=== PATIENT | male | born 1965 | race American Indian/Alaskan Native ===

== ENCOUNTER 2018-04-24 13:10 | Inpatient (IN) | payer OTHER ==
--- NOTE | 2018-04-24 13:37 | ED PDOC ---
Arrival/HPI - General Chief Complaint: Weakness/Neurological Deficit Time Seen by Provider: 04/24/18 13:32 Historian: Patient - History of Present Illness Narrative History of Present Illness (Text): 04/24/18 13:40 52 year old male, who presents to the emergency department complaining of persistent dizziness associated with feeling faint, with no LOC. Patient reports he began to feel like this ~ 2 days ago s/p eating some left overs in the fridge from fathers day (store brought food). Patient denies diarrhea, but states his symptoms are associated with a few episodes of nausea, 1 episode of vomiting, and mild frontal forehead discomfort. He notes the ceiling appeared as if it were moving when the dizziness was severe. Patient denies hearing changes, speech changes, vision changes, fever, diaphoresis, chills, chest pain , shortness of breath, palpitations, abdominal pain, or urinary and bowel changes. pt denied numbness/tingling; pt denied focal arm/leg weakness; No other complaints were made. pt denied fall/trauma/travel/sick contact. pt is here for further eval PCP: None Patient has not seen a physician for more than 5 years for personal choice. 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 Time/Duration: < week Symptom Onset: Sudden Symptom Course: Unchanged Activities at Onset: Rest Context: Home Past Medical History - Provider Review Nursing Documentation Reviewed: Yes - Travel History Have you recently traveled outside [place] w/in the past 3 mons?: No - Past History Past History: No Previous - Infectious Disease Hx of Infectious Diseases: None - Cardiac Hx Cardiac Disorders: No - Pulmonary Hx Respiratory Disorders: No - Neurological Hx Neurological Disorder: No - HEENT Hx HEENT Disorder: No - Renal Hx Renal Disorder: No - Psychiatric Hx Substance Use: No - Anesthesia Hx Anesthesia: No Family/Social History - Physician Review Nursing Documentation Reviewed: Yes Family/Social History: Unknown Family HX Smoking Status: Current Some Days Smoker Hx Alcohol Use: Yes Frequency of alcohol use: Socially Hx Substance Use: No Hx Substance Use Treatment: No Allergies/Home Meds Allergies/Adverse Reactions: Allergies No Known Allergies Allergy (Verified 04/24/18 13:28) Home Medications: Home Meds Medication Instructions Recorded Confirmed No Known Home Med 04/24/18 04/24/18 Review of Systems - Review of Systems Constitutional: Fatigue. absent: Fevers Eyes: absent: Vision Changes ENT: Normal. absent: Hearing Changes, Sore Throat, Rhinorrhea Respiratory: absent: SOB Cardiovascular: absent: Chest Pain Gastrointestinal: Nausea, Vomiting, Appetite Changes. absent: Abdominal Pain, Stool Changes, Diarrhea Genitourinary Male: absent: Dysuria Musculoskeletal: absent: Back Pain Skin: absent: Rash Neurological: Headache, Dizziness. absent: Focal Weakness, Speech Changes, Facial Droop Endocrine: Normal Hemo/Lymphatic: Normal Psychiatric: Normal Physical Exam - Physical Exam Narrative Physical Exam (Text): 04/24/18 General: alert/awake, GCS = 15, oriented x 3, resting in bed, uncomfortable, cooperative, interactive; NAD Head: NC/AT EYE: PERRLA, EOMI, sclera anicteric, + horizontal nystagmus, no photophobia; visual field intact b/l Facial: WNL Oral: uvula/tongue are midline, no exudate/lesions, no drooling/stridor, no dysphonia; fair dentitions; moist oral mucosa NECK: intact ROM, no midline tenderness, no nuchal rigidity, no meningeal signs ; no step off Chest: CTA b/l, no w/r/r; no tachypenia, no accessory muscle use noted Chest Wall: no crepitus, no lesions, no gross deformities, no focal tenderness Cardiac: +S1, +S2, no m/r/r, no tachycardia Abdominal: +BS, soft/nd/nt, well nourished patient; no masses/rebound/guarding/ rigidity; no moura's sign, no mcburney's point tenderness Extremities: intact ROM, strength 5/5 grossly intact in all limbs, neurovasc intact b/l; reflex +2/2; no pitting edema/swelling noted to b/l lower ext; no marina's sign b/l; pt unable to stand without assistance with right sided lean BACK: no step off, no midline tenderness, NO crepitus, no gross deformities noted; Intact ROM SKIN: cap refill < 1 sec, no ulcerations, no petechiae, no rashes; no gross pallor noted NEURO: CNII-XII WNL, no facial asymmetries, no slurr speech, oriented x 3; F- Nose is off; pt with right sided lean NIH stroke scale ~ 1-2 Psych: normal insight, normal affect; follows command with ease Vital Signs Reviewed: Yes Vital Signs Temp Pulse Resp BP Pulse Ox 04/24/18 17:45 82 16 151/87 H 97 04/24/18 13:29 98.4 F 86 17 146/101 H 95 04/24/18 13:21 98.2 F 87 18 146/101 H 98 Temperature: Afebrile Blood Pressure: Hypertensive Pulse: Regular Respiratory Rate: Normal Appearance: Positive for: Well-Appearing, Non-Toxic, Uncomfortable. No: Comfortable, Ill-Appearing, Unkept Pain Distress: None Mental Status: Positive for: Alert and Oriented X 3 - Systems Exam Head: Present: Atraumatic, Normocephalic Medical Decision Making ED Course and Treatment: 04/24/18 13:42 Impression: dizziness/weakness, unsteady gait; frontal headaches i have consider all the differential diagnosis regarding pt's chief medical complaints/clinical findings, including but are not limited to: dizziness/ weakness, unsteady gait; frontal headaches; r/o peripheral disease vs central A/P: dizziness/weakness, unsteady gait; frontal headaches -- EKG -- CT head -- Chest X-ray -- Antivert, Reglan, Toradol, and Sodium Chloride -- Urinalysis 300pm pt with continued dizziness pt states no improvement of his symptoms pt is awaiting CT results 330pm with abnl CT results, will suggests consulting neurology community organization director and pt will likely be admitted to the hospital for further mgt/txt/dx 04/24/18 16:11 Discussed case with , who is made aware and would like to place patient in ICU for continued observation. Requested ICU consultation for concern of cerebellar edema, and/or worsening neurologic symptoms/pathology; close monitoring is reqested; Dr Asher is ok with aspirin full dose and Plavix 75mg, and would like CTA order for the patient as well; Dr Asher will evaluate patient at bedside pt/family are made aware of pt's medical results agrees with admission 04/24/18 16:16 Discussed case with , ICU attending community organization director, who is made aware and will evaluate patient. Will most likely accept patient to ICU. 04/24/18 16:55 Discussed with (hospitalist), who was made aware and agrees with patient admission. 515pm Dr Horan at bedside, evaluated patient, will accept patient to the ICU for further mgt/txt/evaluation Re-evaluation Time: 15:18 Reassessment Condition: Unchanged - Critical Care Critical Care Minutes: 45 minutes Critical Care Time: Excluding Proc Time Narrative Critical Care (Text): 04/24/18 18:07 critical care time: 45min, excluding procedure time, excluding time teaching residents/students/mid-level providers; including initial eval/diagnosis, diagnostic interpretation, re-eval, consultations, final disposition - Lab Interpretations Lab Results: 04/24/18 14:30 04/24/18 14:30 Lab Results 04/24/18 14:30: TSH 3rd Generation 0.88 04/24/18 14:30: Sodium 145, Potassium 4.1, Chloride 105, Carbon Dioxide 27, Anion Gap 17, BUN 21, Creatinine 1.2, Est GFR ( Amer) > 60, Est GFR (Non- Af Amer) > 60, Random Glucose 129 H, Calcium 10.3, Total Bilirubin 0.6, AST 33, ALT 42, Alkaline Phosphatase 102, Troponin I < 0.01, Total Protein 8.4 H, Albumin 4.5, Globulin 3.9, Albumin/Globulin Ratio 1.2 04/24/18 14:30: WBC 8.7, RBC 4.94, Hgb 13.3 L, Hct 40.8 L, MCV 82.6, MCH 26.9, MCHC 32.6, RDW 14.9 H, Plt Count 289, MPV 9.1, Gran % 72.9 H, Lymph % (Auto) 21.5 L, C[place] % (Auto) 5.4, Eos % (Auto) 0.1 L, Baso % (Auto) 0.1, Gran # 6.34, Lymph # (Auto) 1.9, [place] # (Auto) 0.5, Eos # (Auto) 0.0, Baso # (Auto) 0.01 I have reviewed the lab results: Yes Interpretation: All labs normal - RAD Interpretation Narrative RAD Interpretations (Text): 04/24/18 14:25 Chest X-ray: Creator : Sharif Liu MD FINDINGS: LUNGS: No active pulmonary disease. PLEURA: No significant pleural effusion identified, no pneumothorax apparent. CARDIOVASCULAR: Mild cardiomegaly OSSEOUS STRUCTURES: No significant abnormalities. VISUALIZED UPPER ABDOMEN: Normal. OTHER FINDINGS: None. IMPRESSION: No active disease. 04/24/18 15:47 CT HEAD WITHOUT CONTRAST: PROCEDURE: HISTORY: dizziness, frontal headache x 2 days, no trauma FINDINGS: HEMORRHAGE: No intracranial hemorrhage. BRAIN: No mass effect or edema. There is an acute or subacute infarct in the inferior aspect of the right cerebellar hemisphere. This measures 3 x 4 cm as seen on image 5 series 2. The study was reviewed with Dr. Alva at 3:40 p.m. VENTRICLES: Unremarkable. No hydrocephalus. CALVARIUM: Unremarkable. PARANASAL SINUSES: Unremarkable as visualized. No significant inflammatory changes. MASTOID AIR CELLS: Unremarkable as visualized. No inflammatory changes. OTHER FINDINGS: None. IMPRESSION: Acute or subacute infarct in the right inferior cerebellar hemisphere in the distribution of the posterior inferior cerebellar artery. 04/24/18 18:11 CTA results pending PROCEDURE: CT Angiography of the Brain and Neck. HISTORY: per Dr Asher, would like CTA; pt with abnl ct head COMPARISON: None available. TECHNIQUE: CT angiography of the intracranial and neck arteries was performed. Coronal and sagittal maximum intensity projection reformatted images were generated. Contrast Dose: Omnipaque 350, 142 cc Radiation dose:Total exam DLP = 769.98 mGy-cm. This CT exam was performed using one or more of the following dose reduction techniques: Automated exposure control, adjustment of the mA and/or kV according to patient size, and/or use of iterative reconstruction technique. FINDINGS: INTERNAL CEREBRAL ARTERIES: Unremarkable. The skull base, petrous, cavernous and supraclinoid segments are bilaterally widely patent. ANTERIOR CEREBRAL ARTERIES: Unremarkable. A1 and A2 segments are widely patent. Smaller distal branches unremarkable, as visualized. MIDDLE CEREBRAL ARTERIES: Unremarkable. M1 and M2 segments are widely patent. Perisylvian branches grossly symmetric. POSTERIOR CIRCULATION: Basilar Artery: Unremarkable. Distal Vertebral Arteries: Unremarkable. Posterior Cerebral Arteries: Unremarkable. Posterior Inferior Cerebellar Arteries: Unremarkable. NECK CTA: Common Carotid arteries: The bilateral common carotid appear widely patent from their origins to their bifurcations with no significant stenosis appreciated. No evidence to suggest common carotid artery dissection. Internal Carotid arteries: No significant stenosis is appreciated throughout the cervical internal carotid artery segments bilaterally and there is no evidence of dissection either. External Carotid arteries: Appear unremarkable bilaterally. Vertebral arteries: The bilateral vertebral arteries appear normal in caliber from their origins to their junction with the basilar artery. No significant stenosis or definite pattern of dissection. ANEURYSM/ VASCULAR MALFORMATIONS: None. 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 IMPRESSION: Unremarkable CT Angiography of the Brain and Neck. 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 Radiology Orders: 04/24/18 13:43 HEAD W/O CONTRAST [CT] Stat CHEST PORTABLE [RAD] Stat 04/24/18 16:14 CTA HEAD/NECK CODE STROKE [CT] Stat [employer]: Radiologist - EKG Interpretation EKG Interpretation (Text): 04/24/18 15:06 NSR at 85 bpm, normal axis, no ectopy, non-specific t changes, ABNL EKG; no old ekg to compare with Interpreted by ED Physician: Yes Type: 12 lead EKG Comparison: No previous EKG avail. - Medication Orders Current Medication Orders: Aspirin (Aspirin Chewable) 81 mg PO DAILY PREETI Atorvastatin Calcium (Lipitor) 20 mg PO DIN PREETI Famotidine (Pepcid) 40 mg PO HS PREETI Last Admin: 04/24/18 22:11 Dose: 40 mg Heparin Sodium (Porcine) (Heparin) 5,000 units SC Q12 PREETI PRN Reason: Protocol Last Admin: 04/24/18 22:11 Dose: 5,000 units Subcutaneous Administrations Document 04/24/18 22:11 PRATT (Rec: 04/24/18 22:11 PRATT [id number]) Injection Site MAR Injection Site Right Abdomen Charges for Administration # of Subcutaneous Administrations 1 Folic Acid 1 mg/ Thiamine HCl 100 mg/ Multivitamins/Vitamin C 10 ml/ Dextrose 1 ,011.2 mls @ 50 mls/hr IV .[id number] PREETI Stop: 04/26/18 19:46 Last Admin: 04/24/18 20:00 Dose: 50 mls/hr eMAR Start Stop Document 04/24/18 20:00 PRATT (Rec: 04/24/18 22:10 PRATT [id number]) Intravenous Solution Start Date 04/24/18 Start Time 20:00 Insulin Human Regular (Humulin R Low) 0 units SC ACHS PREETI PRN Reason: Protocol Last Admin: 04/24/18 22:02 Dose: Not Given Non-Admin Reason: Blood Sugar Parameter Ondansetron HCl (Zofran Inj) 4 mg IVP Q8 PRN PRN Reason: Nausea/Vomiting Discontinued Medications Aspirin (Aspirin) 325 mg PO STAT STA Stop: 04/24/18 15:50 Last Admin: 04/24/18 15:54 Dose: 325 mg Clopidogrel Bisulfate (Plavix) 75 mg PO STAT STA Stop: 04/24/18 16:15 Last Admin: 04/24/18 16:34 Dose: 75 mg Sodium Chloride (Sodium Chloride 0.9%) 500 mls @ 999 mls/hr IV .Q31M STA Stop: 04/24/18 14:16 Last Admin: 04/24/18 14:26 Dose: 999 mls/hr eMAR Start Stop Document 04/24/18 14:26 SHER (Rec: 04/24/18 14:26 [id number]) Intravenous Solution Start Date 04/24/18 Start Time 14:26 End Date 04/24/18 End time 14:57 Total Infusion Time 31 Meclizine HCl (Antivert) 25 mg PO STAT STA Stop: 04/24/18 13:45 Last Admin: 04/24/18 14:25 Dose: 25 mg Metoclopramide HCl (Reglan) 10 mg IVP STAT STA Stop: 04/24/18 13:45 Last Admin: 04/24/18 14:25 Dose: 10 mg IVP Administration Document 04/24/18 14:25 SHER (Rec: 04/24/18 14:26 [id number]) Charges for Administration # of IVP Administrations 1 - Scribe Statement The provider has reviewed the documentation as recorded by the Juan Jose Bryan Provider Scribe Attestation: All medical record entries made by the Juan Jose were at my direction and personally dictated by me. I have reviewed the chart and agree that the record accurately reflects my personal performance of the history, physical exam, medical decision making, and the department course for this patient. I have also personally directed, reviewed, and agree with the discharge instructions and disposition. Disposition/Present on Arrival - Present on Arrival Any Indicators Present on Arrival: No History of DVT/PE: No History of Uncontrolled Diabetes: No Urinary Catheter: No History of Decub. Ulcer: No History Surgical Site Infection Following: None - Disposition Have Diagnosis and Disposition been Completed?: Yes Diagnosis: Dizziness, Cerebellar infarct, Ataxia, Elevated blood pressure reading Diagnosis: (Ruled Out): Elevated blood pressure reading in office with diagnosis of hypertension Disposition: HOSPITALIZED Disposition Time: 16:30 Patient Plan: Admission, ICU Patient Problems: Current Active Problems Problem Status Onset Dizziness Acute Condition: FAIR
[2018-04-24] MEDS ORDERED: Sodium Chloride 0.9% 500 ML IV STA (13:46)
--- NOTE | 2018-04-24 14:24 | RAD ---
HISTORY: dizziness COMPARISON: No prior. FINDINGS: LUNGS: No active pulmonary disease. PLEURA: No significant pleural effusion identified, no pneumothorax apparent. CARDIOVASCULAR: Mild cardiomegaly OSSEOUS STRUCTURES: No significant abnormalities. VISUALIZED UPPER ABDOMEN: Normal. OTHER FINDINGS: None. IMPRESSION: No active disease.
[2018-04-24 15:01] LABS: BASO # 0.01 K/mm3 (0.0-2.0); BASO % 0.1 % (0.0-3.0); EOS % 0.1 % (1.5-5.0); GRAN # 6.34 (1.4-6.5); GRAN % 72.9 % (50.0-68.0); HEMOGLOBIN 13.3 g/dL (14.0-18.0); LYMPH # 1.9 (1.2-3.4); LYMPH % 21.5 % (22.0-35.0); MEAN CELL VOLUME 82.6 fl (80.0-105.0); MEAN CORPUSCULAR HEMOGLOBIN 26.9 pg (25.0-35.0); MEAN CORPUSCULAR HGB CONC 32.6 g/dl (31.0-37.0); MEAN PLATELET VOLUME 9.1 fl (7.0-11.0); MONO # 0.5 (0.1-0.6); MONO % 5.4 % (1.0-6.0); RBC 4.94 10^6/uL (3.5-6.1); RED CELL DISTRIBUTION WIDTH 14.9 % (11.5-14.5); WHITE BLOOD COUNT 8.7 10^3/ul (4.5-11.0)
[2018-04-24 15:11] LABS: ALB/GLOB RATIO 1.2 (1.1-1.8); ALBUMIN 4.5 g/dL (3.0-4.8); ALT/SGPT 42 U/L (7-56); AST/SGOT 33 U/L (17-59); BLOOD UREA NITROGEN 21 mg/dL (7-21); CALCIUM 10.3 mg/dL (8.4-10.5); GFR AFRICAN-AMERICAN > 60; GFR NON-AFRICAN AMERICAN > 60
[2018-04-24 15:23] LABS: TROPONIN I < 0.01 ng/mL
--- NOTE | 2018-04-24 15:43 | CT ---
PROCEDURE: CT HEAD WITHOUT CONTRAST. HISTORY: dizziness, frontal headache x 2 days, no trauma COMPARISON: None available. TECHNIQUE: Axial computed tomography images were obtained through the head/brain without intravenous contrast. Radiation dose: Total exam DLP = 998 mGy-cm. This CT exam was performed using one or more of the following dose reduction techniques: Automated exposure control, adjustment of the mA and/or kV according to patient size, and/or use of iterative reconstruction technique. FINDINGS: HEMORRHAGE: No intracranial hemorrhage. BRAIN: No mass effect or edema. There is an acute or subacute infarct in the inferior aspect of the right cerebellar hemisphere. This measures 3 x 4 cm as seen on image 5 series 2. The study was reviewed with Dr. Alva at 3:40 p.m. VENTRICLES: Unremarkable. No hydrocephalus. CALVARIUM: Unremarkable. PARANASAL SINUSES: Unremarkable as visualized. No significant inflammatory changes. MASTOID AIR CELLS: Unremarkable as visualized. No inflammatory changes. OTHER FINDINGS: None. IMPRESSION: Acute or subacute infarct in the right inferior cerebellar hemisphere in the distribution of the posterior inferior cerebellar artery.
--- NOTE | 2018-04-24 17:12 | CP.PCM.CON ---
Addendum entered and electronically signed by Debo Rivera DO 04/24/18 19:25 : Per Dr. Asher, permissive hypertension is 180/90 and no preference of choice of antihypertensive agents. Original Note: <Debo Rivera - Last Filed: 04/24/18 18:03> History of Present Illness - History of Present Illness History of Present Illness: PGY-[address] Horan CC: Stroke at R inferior cerebella hemisphere Mr Vleázquez, 54 AAM, active smoker, chronic ETOH use, comes in for dizziness and swerving to R side x 2 days since Sunday. On Sunday, after pt ate some left over food, he felt lightheadedness, always looking to the R side, nausea, vomit x 1 (digested food, non-bloody, non-bilous). He noticed that when he walked, he swerved to R side, and he tripped often. Denies fall. As for dizziness, he said that it is due to swerving to R side that made him feel lightheadedness, denied room spinning. Pt decided to come to hospital today, day 2 of dizziness & swerving, because Sx did not improves. Pt had a cold/flu 2 weeks ago, but go to work as usual. 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 ROS: (+) N/V, (+) decrease appetite Denies PRATT, CP, SOB, Abd pain, dysuria, decrease urine output, falls PMH None PSH None FH Cancer - unknown which kind Denies FH of sickle cell, thelasemia, factor V leiden or other hypercoagulable disease, no bleeding disease in Family\ (+) 3/4 pack of cigar x 5 years (+) 2-3 (12oz) beer per night; <1 shot hard liquor every other night Denies drig SH Live with Son and daughter. No . Pt is single All Denies Meds None PCP - No, havent seen doctor x >5 years Family contact #1: Son Los [phone] #2: Diana [phone] Past Patient History - Infectious Disease Hx of Infectious Diseases: None - Past Social History Smoking Status: Current Some Days Smoker - CARDIAC Hx Cardiac Disorders: No - PULMONARY Hx Respiratory Disorders: No - NEUROLOGICAL Hx Neurological Disorder: No - HEENT Hx HEENT Problems: No - RENAL Hx Chronic Kidney Disease: No - PSYCHIATRIC Hx Substance Use: No - ANESTHESIA Hx Anesthesia: No Meds Allergies/Adverse Reactions: Allergies Allergy/AdvReac Type Severity Reaction Status Date / Time No Known Allergies Allergy Verified 04/24/18 13:28 Physical Exam - Constitutional Appears: No Acute Distress - Head Exam Head Exam: ATRAUMATIC, NORMAL INSPECTION, NORMOCEPHALIC - Eye Exam Eye Exam: EOMI, Nystagmus (horizontal) Additional comments: Slight exothalmos with R eye strabismus (turning out) - ENT Exam ENT Exam: Mucous Membranes Moist - Neck Exam Additional comments: supple - Respiratory Exam Respiratory Exam: Clear to Auscultation Bilateral, NORMAL BREATHING PATTERN ( course breath sound RUL). absent: Rales, Rhonchi, Wheezes - Cardiovascular Exam Cardiovascular Exam: REGULAR RHYTHM, +S1, +S2 - GI/Abdominal Exam GI & Abdominal Exam: Normal Bowel Sounds, Soft. 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 [id number] = overshoots b/l rapid-alternating movement = intact (+) Horizontal nystagmus for vertical or horizontal gaze Motor: RUE 4/5, LUE 5/5; RLE 4/5; LLE 4+/5 sensory intact all 4 ext - Psychiatric Exam Psychiatric exam: Normal Affect, Normal Mood - Skin Skin Exam: Dry, Warm Results - Vital Signs Recent Vital Signs: Last Vital Signs Temp 98.4 F 04/24/18 13:29 Pulse 86 04/24/18 13:29 Resp 17 04/24/18 13:29 BP 146/101 H 04/24/18 13:29 Pulse Ox 95 04/24/18 13:29 - Labs Result Diagrams: 04/24/18 14:30 04/24/18 14:30 Labs: Laboratory Results - last 24 hr 04/24/18 04/24/18 04/24/18 14:30 14:30 14:30 WBC 8.7 RBC 4.94 Hgb 13.3 L Hct 40.8 L MCV 82.6 MCH 26.9 MCHC 32.6 RDW 14.9 H Plt Count 289 MPV 9.1 Gran % 72.9 H Lymph % (Auto) 21.5 L Blaine % (Auto) 5.4 Eos % (Auto) 0.1 L Baso % (Auto) 0.1 Gran # 6.34 Lymph # (Auto) 1.9 Blaine # (Auto) 0.5 Eos # (Auto) 0.0 Baso # (Auto) 0.01 Sodium 145 Potassium 4.1 Chloride 105 Carbon Dioxide 27 Anion Gap 17 BUN 21 Creatinine 1.2 Est GFR ( Amer) > 60 Est GFR (Non-Af Amer) > 60 Random Glucose 129 H Calcium 10.3 Total Bilirubin 0.6 AST 33 ALT 42 Alkaline Phosphatase 102 Troponin I < 0.01 Total Protein 8.4 H Albumin 4.5 Globulin 3.9 Albumin/Globulin Ratio 1.2 TSH 3rd Generation 0.88 Assessment & Plan - Assessment and Plan (Free Text) Plan: Mr Velázquez, 54 AAM, active smoker, chronic ETOH use, comes in for dizziness and swerving to R side x 2 days since Sunday. 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 CT head showed acute or subacute infarct in R inferior cerebellar hemisphere in the distribution of posterior inferior cerebella artery. A: Wallenberg Syndromes (Ataxia/swerving, nystagmus, lightheadedness/vertigo) Ischemic stroke R inferior cerebellar hemisphere in the distribution of posterior inferior cerebella artery, acute vs subacute R/O cardiogenic vs neurologic vs hematologic causes Neuro Neuro check q1 ASA 81 Lipitor 20 PT/OT/ST Pulm Maintain SaO2 above 95% Aspiration precaution Cardio Permissive hypertension up to 220/110 x 1 day GI NPO except meds, pending swallow/speech eval Zofran PRN Strict i/o Replete electrolytes PRN Endo Normal TSH Pending A1c Heme Defer to neuro for hypercoagulable workup ID No active issue Prophylaxis Heparin SC q8, pepcid HS s/r/d/w Dr Horan <Clement Horan - Last Filed: 04/24/18 18:13> Meds - Medications Medications: Current Medications Aspirin (Aspirin Chewable) 81 mg PO DAILY PREETI Atorvastatin Calcium (Lipitor) 20 mg PO DIN PREETI Famotidine (Pepcid) 40 mg PO HS PREETI Heparin Sodium (Porcine) (Heparin) 5,000 units SC Q12 RPEETI PRN Reason: Protocol Ondansetron HCl (Zofran Inj) 4 mg IVP Q8 PRN PRN Reason: Nausea/Vomiting Results - Vital Signs Recent Vital Signs: Last Vital Signs Temp 98.4 F 04/24/18 13:29 Pulse 82 04/24/18 17:45 Resp 16 04/24/18 17:45 BP 151/87 H 04/24/18 17:45 Pulse Ox 97 04/24/18 17:45 - Labs Result Diagrams: 04/24/18 14:30 04/24/18 14:30 Attending/Attestation - Attestation I have personally seen and examined this patient.: Yes I have fully participated in the care of the patient.: Yes I have reviewed all pertinent clinical information: Yes Notes (Text): 04/24/18 18:10 The patient was seen and examined at the bedside. Patient care was discussed with resident Medical records, lab studies were reviewed and management issues were discussed and formulated. Agree with above treatment plans as outlined in 's note with addition of the following: CVA \ -hemodynamic monitoring to maintain MAP>65 -f\u Echo and carotid US -o2 supplementation to maintain Spo2>90 Pao2>60; currently comfortable on NC -CT head shows right inferior cerebellar infarct -neurology team eval; pt not a TPA candidate as he is out of the TPA window -f\u Bun\Cr and U\o -NPO diet and aspiration precautions; dysphagia eval -ISS and BGM monitoring to maintain euglycemia -continue neuro checks as per Stroke protocol -PT\OT eval -DVT\PUD prophylaxis CCM time 30min
--- NOTE | 2018-04-24 17:53 | CARD ---
APPROVED REPORT EKG Measurement Heart [id number] MA [id number] [id number] <Conclusion> Normal sinus rhythm Nonspecific T wave abnormality Abnormal ECG
--- NOTE | 2018-04-24 18:40 | CP.PCM.HP ---
<Artur Amador - Last Filed: 04/24/18 18:28> History of Present Illness - History of Present Illness History of Present Illness: 52 year old male with no PMH presents to the hospital for 2 day history of dizziness and abnormal gait. Patient states there was no inciting event, but had a sudden change in his gait. Patient keeps walking towards the right side and feels unbalanced. Patient also admits to feeling dizzy during this time. He describes it as a lightheaded feeling, which lead to an episode of nausea and vomiting. Patient denies any trauma. Patient also admits to occasional trouble swallowing. Patient has never experienced anything like this before. Denies chest pain, shortness of breath, diarrhea, fever, chills, changes in vision, numbness, tingling, weakness, headache. PMH: None Surgical hx: None Family Hx: Noncontributory Social Hx: Occasional black and mild use x 5 years. Alcohol use every other day. No illicit drug use. Allergies: NKDA Medications: None Present on Admission - Present on Admission Any Indicators Present on Admission: No Review of Systems - Review of Systems Review of Systems: 12 point ROS as per HPI, otherwise negative Past Patient History - Infectious Disease Hx of Infectious Diseases: None - Past Social History Smoking Status: Current Some Days Smoker - CARDIAC Hx Cardiac Disorders: No - PULMONARY Hx Respiratory Disorders: No - NEUROLOGICAL Hx Neurological Disorder: No - HEENT Hx HEENT Problems: No - RENAL Hx Chronic Kidney Disease: No - PSYCHIATRIC Hx Substance Use: No - ANESTHESIA Hx Anesthesia: No Meds Allergies/Adverse Reactions: Allergies Allergy/AdvReac Type Severity Reaction Status Date / Time No Known Allergies Allergy Verified 04/24/18 13:28 Physical Exam - Constitutional Appears: Non-toxic, In Acute Distress - Head Exam Head Exam: ATRAUMATIC, NORMAL INSPECTION, NORMOCEPHALIC - Eye Exam Eye Exam: EOMI, Normal appearance, PERRL - ENT Exam ENT Exam: Mucous Membranes Moist, Normal Exam - Neck Exam Neck exam: Positive for: Normal Inspection - Respiratory Exam Respiratory Exam: Clear to Auscultation Bilateral, NORMAL BREATHING PATTERN - Cardiovascular Exam Cardiovascular Exam: RRR, +S2, +S4 - GI/Abdominal Exam GI & Abdominal Exam: Normal Bowel Sounds, Soft. absent: Tenderness - Extremities Exam Extremities exam: Positive for: normal inspection. Negative for: calf tenderness, pedal edema - Neurological Exam Neurological exam: Alert, CN II-XII Intact, Oriented x3 Additional comments: Muscle strength 5/5 in all extremities Gait exam deferred due to instability - Psychiatric Exam Psychiatric exam: Normal Affect, Normal Mood - Skin Skin Exam: Intact, Normal Color, Warm Results - Vital Signs Recent Vital Signs: Last Vital Signs Temp 98.4 F 04/24/18 13:29 Pulse 82 04/24/18 18:10 Resp 16 04/24/18 18:10 BP 153/93 H 04/24/18 18:10 Pulse Ox 97 04/24/18 18:10 - Labs Result Diagrams: 04/24/18 14:30 04/24/18 14:30 Assessment & Plan - Assessment and Plan (Free Text) Plan: 52 year old male with history of tobacco and alcohol use presents with right sided ischemic stroke. Head CT in ED displayed acute/subacute inferior right cerebellar hemisphere infarct. Patient admitted to the ICU for closer monitoring. 1. Right sided ischemic stroke Neurochecks q1h Physical therapy Occupational therapy Speech and swallow eval Head and Neck CTA ordered Echocardiogram ordered Carotid ultrasound Lipid panel ordered HgA1c ordered Neuro consulted, Recommend ASA and plavix 2. Prophylaxis Pepcid Heparin Perry, PGY-2 <Arti Castrejon - Last Filed: 04/24/18 19:10> Results - Vital Signs Recent Vital Signs: Last Vital Signs Temp 98.4 F 04/24/18 13:29 Pulse 73 04/24/18 19:03 Resp 34 H 04/24/18 19:03 BP 153/93 H 04/24/18 18:10 Pulse Ox 89 L 04/24/18 19:03 - Labs Result Diagrams: 04/24/18 14:30 04/24/18 14:30 Labs: Laboratory Results - last 24 hr 04/24/18 18:18 BBK History Checked No verified bt Attending/Attestation - Attestation I have personally seen and examined this patient.: Yes I have fully participated in the care of the patient.: Yes I have reviewed all pertinent clinical information: Yes Notes (Text): 04/24/18 19:06 52 year old male with history of tobacco and alcohol use presents with complaint of lower extremities weakness, gait imbalance and dizziness. CT head showed acute or subacute inferior right cerebellar hemisphere infarct. CTA head/neck and echocardiogram are ordered. Neurology evaluation is requested. Patient received aspirin and plavis. Lipid panel is ordered. PT evaluation is also requested. Patient was counselled on alcohol and smoking cessation. Family is at bedside and questions were answered. Arti Castrejon MD Hospitalist.
--- NOTE | 2018-04-24 18:53 | CT ---
PROCEDURE: CT Angiography of the Brain and Neck. HISTORY: per Dr Asher, would like CTA; pt with abnl ct head COMPARISON: None available. TECHNIQUE: CT angiography of the intracranial and neck arteries was performed. Coronal and sagittal maximum intensity projection reformatted images were generated. Contrast Dose: Omnipaque 350, 142 cc Radiation dose:Total exam DLP = 769.98 mGy-cm. This CT exam was performed using one or more of the following dose reduction techniques: Automated exposure control, adjustment of the mA and/or kV according to patient size, and/or use of iterative reconstruction technique. FINDINGS: INTERNAL CEREBRAL ARTERIES: Unremarkable. The skull base, petrous, cavernous and supraclinoid segments are bilaterally widely patent. ANTERIOR CEREBRAL ARTERIES: Unremarkable. A1 and A2 segments are widely patent. Smaller distal branches unremarkable, as visualized. MIDDLE CEREBRAL ARTERIES: Unremarkable. M1 and M2 segments are widely patent. Perisylvian branches grossly symmetric. POSTERIOR CIRCULATION: Basilar Artery: Unremarkable. Distal Vertebral Arteries: Unremarkable. Posterior Cerebral Arteries: Unremarkable. Posterior Inferior Cerebellar Arteries: Unremarkable. NECK CTA: Common Carotid arteries: The bilateral common carotid appear widely patent from their origins to their bifurcations with no significant stenosis appreciated. No evidence to suggest common carotid artery dissection. Internal Carotid arteries: No significant stenosis is appreciated throughout the cervical internal carotid artery segments bilaterally and there is no evidence of dissection either. External Carotid arteries: Appear unremarkable bilaterally. Vertebral arteries: The bilateral vertebral arteries appear normal in caliber from their origins to their junction with the basilar artery. No significant stenosis or definite pattern of dissection. ANEURYSM/ VASCULAR MALFORMATIONS: None. 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 IMPRESSION: Unremarkable CT Angiography of the Brain and Neck. 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
[2018-04-24] MEDS ORDERED: Folic Acid 1 MG, Thiamine 100 MG, Multivitamin (MVI) 10 ML in Dextrose 5% In Water 1,00... IV SCH (19:45)
[2018-04-24 22:00] VITALS: BMI 33.0
[2018-04-24] MEDS: Insulin Reg-LOW-Coverage SC SCH (22:02)
[2018-04-25 07:07] LABS: BASO # 0.02 K/mm3 (0.0-2.0); BASO % 0.3 % (0.0-3.0); EOS % 0.5 % (1.5-5.0); GRAN % 60.6 % (50.0-68.0); HEMOGLOBIN 12.8 g/dL (14.0-18.0); LYMPH # 2.1 (1.2-3.4); LYMPH % 31.6 % (22.0-35.0); MEAN CELL VOLUME 84.1 fl (80.0-105.0); MEAN CORPUSCULAR HEMOGLOBIN 26.4 pg (25.0-35.0); MEAN CORPUSCULAR HGB CONC 31.4 g/dl (31.0-37.0); MEAN PLATELET VOLUME 8.9 fl (7.0-11.0); MONO # 0.5 (0.1-0.6); RBC 4.84 10^6/uL (3.5-6.1); WHITE BLOOD COUNT 6.6 10^3/ul (4.5-11.0)
[2018-04-25 07:19] LABS: ALB/GLOB RATIO 1.2 (1.1-1.8); ALBUMIN 4.3 g/dL (3.0-4.8); ALT/SGPT 46 U/L (7-56); AST/SGOT 40 U/L (17-59); BLOOD UREA NITROGEN 17 mg/dL (7-21); CALCIUM 9.8 mg/dL (8.4-10.5); GFR AFRICAN-AMERICAN > 60; GFR NON-AFRICAN AMERICAN > 60; HDL CHOLESTEROL 44 mg/dL (29-60)
[2018-04-25 07:31] LABS: LDL CHOLESTEROL 122 mg/dL (0-129)
--- NOTE | 2018-04-25 07:35 | CP.CCUPN ---
<Debo Rivera - Last Filed: 04/25/18 11:21> CCU Subjective - Physician Review Subjective (Free Text): 04/25/18 07:31 Daughter by bedside. Per pt, he stood up for a brief while, tolerating. Complaint of PRATT, no dizziness/blurry vision/diplopia CCU Objective - Vital Signs / Intake & Output Intake and Output (Last 8hrs): Intake & Output 04/24/18 04/25/18 04/25/18 22:59 06:59 14:59 Weight 230 lb - Physical Exam Head: Positive for: Atraumatic, Normocephalic Pupils: Positive for: PERRL Extroacular Muscles: Positive for: EOMI Conjunctiva: Positive for: Normal Mouth: Positive for: Moist Mucous Membranes Neck: Positive for: Normal Range of Motion. Negative for: MIDLINE TENDERNESS, JVD Respiratory/Chest: Positive for: Clear to Auscultation, Good Air Exchange. Negative for: Accessory Muscle Use, Rales, Retracting, Rhonchi Cardiovascular: Positive for: Regular Rate and Rhythm, Normal S1, S2 Abdomen: Positive for: Normal Bowel Sounds. 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, [id number] = overshoots b/l, rapid-alternating movement = intact, (+) Horizontal nystagmus for vertical or horizontal gaze, Motor: RUE 5/5 , LUE 5/5; RLE 4+/5; LLE 5/5, sensory intact all 4 ext) Psychiatric: Positive for: Alert, Oriented x 3 - Medications Active Medications: Active Medications Generic Name Dose Route Start Last Admin Trade Name Emmanuelq PRN Reason Stop Dose Admin Aspirin 81 mg 04/25/18 10:00 Aspirin Chewable PO DAILY PREETI Atorvastatin Calcium 20 mg 04/25/18 17:00 Lipitor PO DIN PREETI Famotidine 40 mg 04/24/18 22:00 04/24/18 22:11 Pepcid PO 40 mg HS PREETI Administration Heparin Sodium (Porcine) 5,000 units 04/24/18 22:00 04/24/18 22:11 Heparin SC 5,000 units Q12 PREETI Administration Protocol Folic Acid 1 mg/ Thiamine HCl 1,011.2 mls @ 50 mls/hr 04/24/18 19:45 20:00 100 mg/ Multivitamins/Vitamin IV 04/26/18 19:46 50 mls/hr C 10 ml/ Dextrose .[id number] PREETI Administration Insulin Human Regular 0 units 04/24/18 22:00 04/24/18 22:02 Humulin R Low SC Not Given ACHS [facility] Protocol Ondansetron HCl 4 mg 04/24/18 17:53 Zofran Inj IVP Q8 PRN Nausea/Vomiting - Patient Studies Lab Studies: Lab Studies 04/25/18 04/25/18 04/24/18 Range/Units 06:25 06:25 21:58 WBC 6.6 D (4.5-11.0) 10^3/ul RBC 4.84 (3.5-6.1) 10^6/uL Hgb 12.8 L (14.0-18.0) g/dL Hct 40.7 L (42.0-52.0) % MCV 84.1 (80.0-105.0) fl MCH 26.4 (25.0-35.0) pg MCHC 31.4 (31.0-37.0) g/dl RDW 15.0 H (11.5-14.5) % Plt Count 262 (120.0-450.0) 10^3/uL MPV 8.9 (7.0-11.0) fl Gran % 60.6 (50.0-68.0) % Lymph % (Auto) 31.6 (22.0-35.0) % [place] % (Auto) 7.0 H (1.0-6.0) % Eos % (Auto) 0.5 L (1.5-5.0) % Baso % (Auto) 0.3 (0.0-3.0) % Gran # 4.00 (1.4-6.5) Lymph # (Auto) 2.1 (1.2-3.4) [place] # (Auto) 0.5 (0.1-0.6) Eos # (Auto) 0.0 (0.0-0.7) Baso # (Auto) 0.02 (0.0-2.0) K/mm3 Sodium 144 (132-148) mmol/L Potassium 4.1 (3.6-5.0) mmol/L Chloride 105 (98-107) mmol/L Carbon Dioxide 28 (21-33) mmol/L Anion Gap 16 (10-20) BUN 17 (7-21) mg/dL Creatinine 1.1 (0.8-1.5) mg/dl Est GFR ( Amer) > 60 Est GFR (Non-Af Amer) > 60 POC Glucose (mg/dL) 93 (65-110) mg/dL Random Glucose 103 (70-110) mg/dL Calcium 9.8 (8.4-10.5) mg/dL Total Bilirubin 0.6 (0.2-1.3) mg/dL AST 40 (17-59) U/L ALT 46 (7-56) U/L Alkaline Phosphatase 98 (38-126) U/L Total Protein 8.0 (5.8-8.3) g/dL Albumin 4.3 (3.0-4.8) g/dL Globulin 3.7 gm/dL Albumin/Globulin Ratio 1.2 (1.1-1.8) Triglycerides 160 (35-160) mg/dL Cholesterol 202 H (130-200) mg/dL HDL Cholesterol 44 (29-60) mg/dL Blood Type Antibody Screen BBK History Checked 04/24/18 Range/Units 18:18 WBC (4.5-11.0) 10^3/ul RBC (3.5-6.1) 10^6/uL Hgb (14.0-18.0) g/dL Hct (42.0-52.0) % MCV (80.0-105.0) fl MCH (25.0-35.0) pg MCHC (31.0-37.0) g/dl RDW (11.5-14.5) % Plt Count (120.0-450.0) 10^3/uL MPV (7.0-11.0) fl Gran % (50.0-68.0) % Lymph % (Auto) (22.0-35.0) % [place] % (Auto) (1.0-6.0) % Eos % (Auto) (1.5-5.0) % Baso % (Auto) (0.0-3.0) % Gran # (1.4-6.5) Lymph # (Auto) (1.2-3.4) [place] # (Auto) (0.1-0.6) Eos # (Auto) (0.0-0.7) Baso # (Auto) (0.0-2.0) K/mm3 Sodium (132-148) mmol/L Potassium (3.6-5.0) mmol/L Chloride (98-107) mmol/L Carbon Dioxide (21-33) mmol/L Anion Gap (10-20) BUN (7-21) mg/dL Creatinine (0.8-1.5) mg/dl Est GFR ( Amer) Est GFR (Non-Af Amer) POC Glucose (mg/dL) (65-110) mg/dL Random Glucose (70-110) mg/dL Calcium (8.4-10.5) mg/dL Total Bilirubin (0.2-1.3) mg/dL AST (17-59) U/L ALT (7-56) U/L Alkaline Phosphatase (38-126) U/L Total Protein (5.8-8.3) g/dL Albumin (3.0-4.8) g/dL Globulin gm/dL Albumin/Globulin Ratio (1.1-1.8) Triglycerides (35-160) mg/dL Cholesterol (130-200) mg/dL HDL Cholesterol (29-60) mg/dL Blood Type O POSITIVE Antibody Screen Negative BBK History Checked No verified bt Laboratory Results - last 24 hr 04/24/18 04/24/18 04/25/18 18:18 21:58 06:25 WBC 6.6 D RBC 4.84 Hgb 12.8 L Hct 40.7 L MCV 84.1 MCH 26.4 MCHC 31.4 RDW 15.0 H Plt Count 262 MPV 8.9 Gran % 60.6 Lymph % (Auto) 31.6 [place] % (Auto) 7.0 H Eos % (Auto) 0.5 L Baso % (Auto) 0.3 Gran # 4.00 Lymph # (Auto) 2.1 [place] # (Auto) 0.5 Eos # (Auto) 0.0 Baso # (Auto) 0.02 Sodium Potassium Chloride Carbon Dioxide Anion Gap BUN Creatinine Est GFR ( Amer) Est GFR (Non-Af Amer) POC Glucose (mg/dL) 93 Random Glucose Calcium Total Bilirubin AST ALT Alkaline Phosphatase Total Protein Albumin Globulin Albumin/Globulin Ratio Triglycerides Cholesterol HDL Cholesterol Blood Type O POSITIVE Antibody Screen Negative BBK History Checked No verified bt 04/25/18 06:25 WBC RBC Hgb Hct MCV MCH MCHC RDW Plt Count MPV Gran % Lymph % (Auto) [place] % (Auto) Eos % (Auto) Baso % (Auto) Gran # Lymph # (Auto) [place] # (Auto) Eos # (Auto) Baso # (Auto) Sodium 144 Potassium 4.1 Chloride 105 Carbon Dioxide 28 Anion Gap 16 BUN 17 Creatinine 1.1 Est GFR ( Amer) > 60 Est GFR (Non-Af Amer) > 60 POC Glucose (mg/dL) Random Glucose 103 Calcium 9.8 Total Bilirubin 0.6 AST 40 ALT 46 Alkaline Phosphatase 98 Total Protein 8.0 Albumin 4.3 Globulin 3.7 Albumin/Globulin Ratio 1.2 Triglycerides 160 Cholesterol 202 H HDL Cholesterol 44 Blood Type Antibody Screen BBK History Checked Critical Care Progress Note - Nutrition Nutrition: Nutrition Category Date Time Status NPO Diet [DIET] Diets 04/24/18 Dinner Ordered Assessment/Plan - Assessment and Plan (Free Text) Plan: Mr Velázquez, 54 AAM, active smoker, chronic ETOH use, comes in for dizziness and swerving to R side x 2 days since Sunday. 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 CT head showed acute or subacute infarct in R inferior cerebellar hemisphere in the distribution of posterior inferior cerebella artery. A: [place] Syndromes (Ataxia/swerving, nystagmus, lightheadedness/vertigo) Ischemic stroke R inferior cerebellar hemisphere in the distribution of posterior inferior cerebella artery, acute vs subacute R/O cardiogenic vs neurologic vs hematologic causes pt not a TPA candidate as he is out of the TPA window Neuro Neuro check q1 ASA 81 Lipitor 20 PT/OT/ST CIWA 0, stop banana bag, and give vitamins Echo and carotid US Pending neuro re: CTA head/MRA vs mRI Pulm Aspiration precaution o2 supplementation to maintain Spo2>90 Pao2>[address] Asher, permissive hypertension is 180/90 and no preference of choice of antihypertensive agents. No a-fib on monitor GI started soft HHD with nectar thick liquid, pending swallow/speech eval Passed RN swallow eval Zofran PRN Strict i/o Replete electrolytes PRN Endo Normal TSH Pending A1c Maintain blood glucose 140-180 Heme follow up on hypercoagulable workup ID No active issue Prophylaxis Heparin SC q8, pepcid HS' Dispo transfer to [facility], pending neuro s/r/d/w Dr. Horan <Clement Horan - Last Filed: 04/25/18 12:20> CCU Objective - Vital Signs / Intake & Output Intake and Output (Last 8hrs): Intake & Output 04/24/18 04/25/18 04/25/18 22:59 06:59 14:59 Intake Total 700 Output Total 500 Balance 200 Weight 230 lb 230 lb Intake: IV 600 Right Antecubital 600 Oral 100 Output: Urine 500 Urine, Voided 500 Stool 0 - Medications Active Medications: Active Medications Generic Name Dose Route Start Last Admin Trade Name Freq PRN Reason Stop Dose Admin Aspirin 81 mg 04/25/18 10:00 04/25/18 10:37 Aspirin Chewable PO 81 mg DAILY PREETI Administration Atorvastatin Calcium 40 mg 04/25/18 17:00 Lipitor PO DIN PREETI Famotidine 40 mg 04/24/18 22:00 04/24/18 22:11 Pepcid PO 40 mg HS PREETI Administration Folic Acid 1 mg 04/26/18 10:00 Folic Acid PO DAILY PREETI Heparin Sodium (Porcine) 5,000 units 04/24/18 22:00 04/25/18 10:37 Heparin SC 5,000 units Q12 PREETI Administration Protocol Insulin Human Regular 0 units 04/24/18 22:00 04/25/18 10:35 Humulin R Low SC Not Given ACHS [facility] Protocol Multivitamins 1 tab 04/26/18 10:00 Thera Tab PO DAILY PREETI Ondansetron HCl 4 mg 04/24/18 17:53 Zofran Inj IVP Q8 PRN Nausea/Vomiting Thiamine HCl 100 mg 04/26/18 10:00 Vitamin B1 Tab PO DAILY PREETI - Patient Studies Lab Studies: Lab Studies 04/25/18 04/25/18 04/25/18 Range/Units 11:44 07:42 06:25 WBC (4.5-11.0) 10^3/ul RBC (3.5-6.1) 10^6/uL Hgb (14.0-18.0) g/dL Hct (42.0-52.0) % MCV (80.0-105.0) fl MCH (25.0-35.0) pg MCHC (31.0-37.0) g/dl RDW (11.5-14.5) % Plt Count (120.0-450.0) 10^3/uL MPV (7.0-11.0) fl Gran % (50.0-68.0) % Lymph % (Auto) (22.0-35.0) % [place] % (Auto) (1.0-6.0) % Eos % (Auto) (1.5-5.0) % Baso % (Auto) (0.0-3.0) % Gran # (1.4-6.5) Lymph # (Auto) (1.2-3.4) [place] # (Auto) (0.1-0.6) Eos # (Auto) (0.0-0.7) Baso # (Auto) (0.0-2.0) K/mm3 Sodium (132-148) mmol/L Potassium (3.6-5.0) mmol/L Chloride (98-107) mmol/L Carbon Dioxide (21-33) mmol/L Anion Gap (10-20) BUN (7-21) mg/dL Creatinine (0.8-1.5) mg/dl Est GFR ( Amer) Est GFR (Non-Af Amer) POC Glucose (mg/dL) 96 97 (65-110) mg/dL Random Glucose (70-110) mg/dL Hemoglobin A1c (4.2-6.5) % Calcium (8.4-10.5) mg/dL Magnesium 2.4 H (1.7-2.2) mg/dL Total Bilirubin (0.2-1.3) mg/dL AST (17-59) U/L ALT (7-56) U/L Alkaline Phosphatase (38-126) U/L Total Protein (5.8-8.3) g/dL Albumin (3.0-4.8) g/dL Globulin gm/dL Albumin/Globulin Ratio (1.1-1.8) Triglycerides (35-160) mg/dL Cholesterol (130-200) mg/dL LDL Cholesterol Direct (0-129) mg/dL HDL Cholesterol (29-60) mg/dL Blood Type Blood Type Confirm Antibody Screen BBK History Checked 04/25/18 04/25/18 04/25/18 Range/Units 06:25 06:25 06:25 WBC 6.6 D (4.5-11.0) 10^3/ul RBC 4.84 (3.5-6.1) 10^6/uL Hgb 12.8 L (14.0-18.0) g/dL Hct 40.7 L (42.0-52.0) % MCV 84.1 (80.0-105.0) fl MCH 26.4 (25.0-35.0) pg MCHC 31.4 (31.0-37.0) g/dl RDW 15.0 H (11.5-14.5) % Plt Count 262 (120.0-450.0) 10^3/uL MPV 8.9 (7.0-11.0) fl Gran % 60.6 (50.0-68.0) % Lymph % (Auto) 31.6 (22.0-35.0) % [place] % (Auto) 7.0 H (1.0-6.0) % Eos % (Auto) 0.5 L (1.5-5.0) % Baso % (Auto) 0.3 (0.0-3.0) % Gran # 4.00 (1.4-6.5) Lymph # (Auto) 2.1 (1.2-3.4) [place] # (Auto) 0.5 (0.1-0.6) Eos # (Auto) 0.0 (0.0-0.7) Baso # (Auto) 0.02 (0.0-2.0) K/mm3 Sodium 144 (132-148) mmol/L Potassium 4.1 (3.6-5.0) mmol/L Chloride 105 (98-107) mmol/L Carbon Dioxide 28 (21-33) mmol/L Anion Gap 16 (10-20) BUN 17 (7-21) mg/dL Creatinine 1.1 (0.8-1.5) mg/dl Est GFR ( Amer) > 60 Est GFR (Non-Af Amer) > 60 POC Glucose (mg/dL) (65-110) mg/dL Random Glucose 103 (70-110) mg/dL Hemoglobin A1c (4.2-6.5) % Calcium 9.8 (8.4-10.5) mg/dL Magnesium (1.7-2.2) mg/dL Total Bilirubin 0.6 (0.2-1.3) mg/dL AST 40 (17-59) U/L ALT 46 (7-56) U/L Alkaline Phosphatase 98 (38-126) U/L Total Protein 8.0 (5.8-8.3) g/dL Albumin 4.3 (3.0-4.8) g/dL Globulin 3.7 gm/dL Albumin/Globulin Ratio 1.2 (1.1-1.8) Triglycerides 160 (35-160) mg/dL Cholesterol 202 H (130-200) mg/dL LDL Cholesterol Direct 122 (0-129) mg/dL HDL Cholesterol 44 (29-60) mg/dL Blood Type Blood Type Confirm O POSITIVE Antibody Screen BBK History Checked 04/25/18 04/24/18 04/24/18 Range/Units 06:25 21:58 18:18 WBC (4.5-11.0) 10^3/ul RBC (3.5-6.1) 10^6/uL Hgb (14.0-18.0) g/dL Hct (42.0-52.0) % MCV (80.0-105.0) fl MCH (25.0-35.0) pg MCHC (31.0-37.0) g/dl RDW (11.5-14.5) % Plt Count (120.0-450.0) 10^3/uL MPV (7.0-11.0) fl Gran % (50.0-68.0) % Lymph % (Auto) (22.0-35.0) % [place] % (Auto) (1.0-6.0) % Eos % (Auto) (1.5-5.0) % Baso % (Auto) (0.0-3.0) % Gran # (1.4-6.5) Lymph # (Auto) (1.2-3.4) [place] # (Auto) (0.1-0.6) Eos # (Auto) (0.0-0.7) Baso # (Auto) (0.0-2.0) K/mm3 Sodium (132-148) mmol/L Potassium (3.6-5.0) mmol/L Chloride (98-107) mmol/L Carbon Dioxide (21-33) mmol/L Anion Gap (10-20) BUN (7-21) mg/dL Creatinine (0.8-1.5) mg/dl Est GFR ( Amer) Est GFR (Non-Af Amer) POC Glucose (mg/dL) 93 (65-110) mg/dL Random Glucose (70-110) mg/dL Hemoglobin A1c 6.1 (4.2-6.5) % Calcium (8.4-10.5) mg/dL Magnesium (1.7-2.2) mg/dL Total Bilirubin (0.2-1.3) mg/dL AST (17-59) U/L ALT (7-56) U/L Alkaline Phosphatase (38-126) U/L Total Protein (5.8-8.3) g/dL Albumin (3.0-4.8) g/dL Globulin gm/dL Albumin/Globulin Ratio (1.1-1.8) Triglycerides (35-160) mg/dL Cholesterol (130-200) mg/dL LDL Cholesterol Direct (0-129) mg/dL HDL Cholesterol (29-60) mg/dL Blood Type O POSITIVE Blood Type Confirm Antibody Screen Negative BBK History Checked No verified bt Laboratory Results - last 24 hr 04/24/18 04/24/18 04/25/18 18:18 21:58 06:25 WBC RBC Hgb Hct MCV MCH MCHC RDW Plt Count MPV Gran % Lymph % (Auto) [place] % (Auto) Eos % (Auto) Baso % (Auto) Gran # Lymph # (Auto) [place] # (Auto) Eos # (Auto) Baso # (Auto) Sodium Potassium Chloride Carbon Dioxide Anion Gap BUN Creatinine Est GFR ( Amer) Est GFR (Non-Af Amer) POC Glucose (mg/dL) 93 Random Glucose Hemoglobin A1c 6.1 Calcium Magnesium Total Bilirubin AST ALT Alkaline Phosphatase Total Protein Albumin Globulin Albumin/Globulin Ratio Triglycerides Cholesterol LDL Cholesterol Direct HDL Cholesterol Blood Type O POSITIVE Blood Type Confirm Antibody Screen Negative BBK History Checked No verified bt 04/25/18 04/25/18 04/25/18 06:25 06:25 06:25 WBC 6.6 D RBC 4.84 Hgb 12.8 L Hct 40.7 L MCV 84.1 MCH 26.4 MCHC 31.4 RDW 15.0 H Plt Count 262 MPV 8.9 Gran % 60.6 Lymph % (Auto) 31.6 [place] % (Auto) 7.0 H Eos % (Auto) 0.5 L Baso % (Auto) 0.3 Gran # 4.00 Lymph # (Auto) 2.1 [place] # (Auto) 0.5 Eos # (Auto) 0.0 Baso # (Auto) 0.02 Sodium 144 Potassium 4.1 Chloride 105 Carbon Dioxide 28 Anion Gap 16 BUN 17 Creatinine 1.1 Est GFR ( Amer) > 60 Est GFR (Non-Af Amer) > 60 POC Glucose (mg/dL) Random Glucose 103 Hemoglobin A1c Calcium 9.8 Magnesium Total Bilirubin 0.6 AST 40 ALT 46 Alkaline Phosphatase 98 Total Protein 8.0 Albumin 4.3 Globulin 3.7 Albumin/Globulin Ratio 1.2 Triglycerides 160 Cholesterol 202 H LDL Cholesterol Direct 122 HDL Cholesterol 44 Blood Type Blood Type Confirm O POSITIVE Antibody Screen BBK History Checked 04/25/18 04/25/18 04/25/18 06:25 07:42 11:44 WBC RBC Hgb Hct MCV MCH MCHC RDW Plt Count MPV Gran % Lymph % (Auto) [place] % (Auto) Eos % (Auto) Baso % (Auto) Gran # Lymph # (Auto) [place] # (Auto) Eos # (Auto) Baso # (Auto) Sodium Potassium Chloride Carbon Dioxide Anion Gap BUN Creatinine Est GFR ( Amer) Est GFR (Non-Af Amer) POC Glucose (mg/dL) 97 96 Random Glucose Hemoglobin A1c Calcium Magnesium 2.4 H Total Bilirubin AST ALT Alkaline Phosphatase Total Protein Albumin Globulin Albumin/Globulin Ratio Triglycerides Cholesterol LDL Cholesterol Direct HDL Cholesterol Blood Type Blood Type Confirm Antibody Screen BBK History Checked Critical Care Progress Note - Nutrition Nutrition: Nutrition Category Date Time Status Heart Healthy Diet [DIET] Diets 04/25/18 Lunch Active Attending/Attestation - Attestation I have personally seen and examined this patient.: Yes I have fully participated in the care of the patient.: Yes I have reviewed all pertinent clinical information: Yes Notes (Text): 04/25/18 12:18 The patient was seen and examined at the bedside. Patient care was discussed with resident Medical records, lab studies were reviewed and management issues were discussed and formulated. Agree with above treatment plans as outlined in 's note. Pt had no events overnight. Neurology team is to see the pt this morning.
--- NOTE | 2018-04-25 08:00 | CP.PCM.PN ---
<Erendira Floyd - Last Filed: 04/25/18 13:32> Subjective - Date & Time of Evaluation Date of Evaluation: 04/25/18 Time of Evaluation: 08:00 - Subjective Subjective: Internal Medicine Progress Note - Hospitalist Service Patient seen and examined at bedside. Per nursing no acute events overnight. Patient is doing well, states that he is have some difficulty with secretions. Also admits to having a mild headache. Offers no other complaints at this time. Denies dizziness, cp, palpitations, sob, abdominal pain, urinary symptoms, changes in bowel habits. Objective - Vital Signs/Intake and Output Vital Signs (last 24 hours): Temp Pulse Resp BP Pulse Ox 98.4 F 74 19 171/103 H 96 04/24/18 19:03 04/24/18 21:40 04/24/18 21:40 04/24/18 21:00 04/24/18 21:40 - Medications Medications: Current Medications Aspirin (Aspirin Chewable) 81 mg PO DAILY [facility] Atorvastatin Calcium (Lipitor) 20 mg PO DIN [facility]I Famotidine (Pepcid) 40 mg PO HS [facility] Last Admin: 04/24/18 22:11 Dose: 40 mg Heparin Sodium (Porcine) (Heparin) 5,000 units SC Q12 [facility] PRN Reason: Protocol Last Admin: 04/24/18 22:11 Dose: 5,000 units Folic Acid 1 mg/ Thiamine HCl 100 mg/ Multivitamins/Vitamin C 10 ml/ Dextrose 1 ,011.2 mls @ 50 mls/hr IV .[id number] [facility] Stop: 04/26/18 19:46 Last Admin: 04/24/18 20:00 Dose: 50 mls/hr Insulin Human Regular (Humulin R Low) 0 units SC ACHS PRE[facility]I PRN Reason: Protocol Last Admin: 04/24/18 22:02 Dose: Not Given Ondansetron HCl (Zofran Inj) 4 mg IVP Q8 PRN PRN Reason: Nausea/Vomiting - Labs Labs: 04/25/18 06:25 04/25/18 06:25 Assessment and Plan - Assessment and Plan (Free Text) Assessment: A/P: Patient is a 52 year old male with history of tobacco and alcohol use presents with right sided ischemic stroke. Head CT in ED displayed acute/ subacute inferior right cerebellar hemisphere infarct. Patient admitted to the ICU for closer monitoring. 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 -Carotid dopplers, echo with bubble study ordered -MRI brain ordered -Hypercoagulable workup in progress -Diet NPO -Speech and swallow eval pending -Physical therapy/Occupational therapy ordered -HgA1c pending -Neuro consulted, Mannitol 25mg IV Q8H started -Allow for permissive hypertension 180/90 -Seizure precautions, Aspiration precautions, Continue Neurochecks q1h Dyslipidemia -Lipid panel: Triglycerides 160, Cholesterol 202, LDL 122, HDL 44 -Continue Lipitor 40mg PO HS Tobacco use/Alcohol use -Patient smokes 1-2 black and mild cigarettes a day -Cessation advised -F/U UTOX -CIWA 0 -Banana bag discontinued -Started on Thiamine, Multivitamins, Folic acid GI/DVT Prophylaxis Pepcid 20mg PO daily Heparin 5000 units SC Q12H Disposition: Patient does not have a PMD, will have patient follow up with [facility] clinic upon discharge. Plan discussed with Dr Castrejon. Erendira Floyd DO PGY-1 <Arti Castrejon - Last Filed: 04/25/18 17:13> Objective - Vital Signs/Intake and Output Vital Signs (last 24 hours): Temp Pulse Resp BP Pulse Ox 98.8 F 83 15 150/95 H 89 L 04/25/18 13:43 04/25/18 16:01 04/25/18 16:01 04/25/18 16:01 04/25/18 16:01 Intake and Output: 04/25/18 04/25/18 06:59 18:59 Intake Total 700 Output Total 500 Balance 200 - Medications Medications: Current Medications Aspirin (Aspirin Chewable) 81 mg PO DAILY [facility] Last Admin: 04/25/18 10:37 Dose: 81 mg Atorvastatin Calcium (Lipitor) 40 mg PO DIN [facility] Famotidine (Pepcid) 40 mg PO HS [facility] Last Admin: 04/24/18 22:11 Dose: 40 mg Folic Acid (Folic Acid) 1 mg PO DAILY [facility] Heparin Sodium (Porcine) (Heparin) 5,000 units SC Q12 [facility] PRN Reason: Protocol Last Admin: 06/21/18 10:37 Dose: 5,000 units Mannitol (Mannitol) 100 mls @ 100 mls/hr IV Q8 [facility] Last Admin: 04/25/18 13:05 Dose: 100 mls/hr Insulin Human Regular (Humulin R Low) 0 units SC ACHS PREETI PRN Reason: Protocol Last Admin: 04/25/18 13:04 Dose: Not Given Multivitamins (Thera Tab) 1 tab PO DAILY [facility] Ondansetron HCl (Zofran Inj) 4 mg IVP Q8 PRN PRN Reason: Nausea/Vomiting Thiamine HCl (Vitamin B1 Tab) 100 mg PO DAILY PREETI - Labs Labs: 04/25/18 06:25 04/25/18 06:25 Attending/Attestation - Attestation I have personally seen and examined this patient.: Yes I have fully participated in the care of the patient.: Yes I have reviewed all pertinent clinical information, including history, physical exam and plan: Yes Notes (Text): 04/25/18 17:11 52 year old male with history of tobacco and alcohol use presents with complaint of lower extremities weakness, gait imbalance and dizziness. CT head showed acute or subacute inferior right cerebellar hemisphere infarct. CTA head/neck was negative for occlusion. Carotid dopplers and echocardiogram was done today. MRI brain was ordered as well. Neurology evaluation was appreciated. Continue with aspirin and statin. He was started on mannitol as well. PT evaluation was appreciated; recommending acute rehab. Patient was counselled on alcohol and smoking cessation. Family is at bedside and questions were answered. Arti Castrejon MD Hospitalist.
[2018-04-25] MEDS: Insulin Reg-LOW-Coverage SC SCH ×4 (10:35→22:00)
[2018-04-25] MEDS ORDERED: Mannitol 12.5 gm/50 ml Inj IV SCH (14:00)
--- NOTE | 2018-04-25 14:58 | US ---
PROCEDURE: Bilateral carotid artery duplex ultrasound HISTORY: Carotid stenosis CVA PHYSICIAN(S): Osiel Weaver MD. TECHNIQUE: Duplex sonography and color-flow Doppler were used to evaluate the carotid bifurcations and limited segments of the vertebral arteries bilaterally. The exam is limited by body habitus. FINDINGS: There is mild smooth heterogeneous plaque noted at the carotid bifurcations bilaterally. The peak systolic velocity in the proximal right internal carotid artery is 53 cm/sec. This corresponds to a 20 to 39% proximal right ICA stenosis. Normal systolic velocities are noted in the proximal right external carotid artery. There is blunted high resistance antegrade flow in the atretic right vertebral artery. The peak systolic velocity in the proximal left internal carotid artery is 59 cm/sec. This corresponds to a 20 to 39% proximal left ICA stenosis. Normal systolic velocities are noted in the proximal left external carotid artery. There is antegrade flow in the left vertebral artery. IMPRESSION: 1. Bilateral 20-39% proximal ICA stenoses. 2. Antegrade flow in the left vertebral artery. Blunted high resistance flow in the atretic right vertebral artery
--- NOTE | 2018-04-25 15:25 | CP.PCM.CON ---
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 He did not come in to the Er, but felt consistently worse later in the day when he ate something and felt dizzy, nauseous, and vomited x1, continuing to fall to the right side. He denies head trauma, mva, hearing loss or tinnitus, aphasia or dysarthria or weakness. Yesterday afternoon, after several days of these persistent symptoms, he decided to come into the hospital for evaluation. In the Er, CT scan head showed a subacute right cerebellar peduncle stroke, with no hemorrhagic component. The patient was not a TPA candidate as he presented several days after initial event. Today, on exam he is well, following commands, quite awake. ROS: (+) N/V, (+) decrease appetite Denies PRATT, CP, SOB, Abd pain, dysuria, decrease urine output, falls PMH None PSH None FH Cancer - unknown which kind (+) 3/4 pack of cigar x 5 years (+) 2-3 (12oz) beer per night; <1 shot hard liquor every other night Denies drig SH Live with Son and daughter. unmarried. All Denies On exam: aaox3. Pupils 3mm-2mm with light bilaterally. Right eye cannot adduct. Right eye ptosis. Left eye is normal. Right hand clear dysmetria, left hand normal. Gait shows that he clearly falls to the right. +2 dtr ul and bl. Toes downgoing. No clonus. Good strength ul and ll bl. Past Patient History - Infectious Disease Hx of Infectious Diseases: None - Past Social History Smoking Status: Current Some Days Smoker - CARDIAC Hx Cardiac Disorders: No - PULMONARY Hx Respiratory Disorders: No - NEUROLOGICAL Hx Neurological Disorder: No - HEENT Hx HEENT Problems: No - RENAL Hx Chronic Kidney Disease: No - MUSCULOSKELETAL/RHEUMATOLOGICAL Hx Falls: No - PSYCHIATRIC Hx Substance Use: No - ANESTHESIA Hx Anesthesia: No Meds Allergies/Adverse Reactions: Allergies Allergy/AdvReac Type Severity Reaction Status Date / Time No Known Allergies Allergy Verified 04/24/18 13:28 - Medications Medications: Current Medications Aspirin (Aspirin Chewable) 81 mg PO DAILY [facility] Last Admin: 04/25/18 10:37 Dose: 81 mg Atorvastatin Calcium (Lipitor) 40 mg PO DIN [facility] Famotidine (Pepcid) 40 mg PO HS [facility] Last Admin: 04/24/18 22:11 Dose: 40 mg Folic Acid (Folic Acid) 1 mg PO DAILY [facility] Heparin Sodium (Porcine) (Heparin) 5,000 units SC Q12 PRE[facility]I PRN Reason: Protocol Last Admin: 04/25/18 10:37 Dose: 5,000 units Mannitol (Mannitol) 100 mls @ 100 mls/hr IV Q8 [facility] Last Admin: 04/25/18 13:05 Dose: 100 mls/hr Insulin Human Regular (Humulin R Low) 0 units SC ACHS PRE[facility]I PRN Reason: Protocol Last Admin: 04/25/18 13:04 Dose: Not Given Multivitamins (Thera Tab) 1 tab PO DAILY [facility] Ondansetron HCl (Zofran Inj) 4 mg IVP Q8 PRN PRN Reason: Nausea/Vomiting Thiamine HCl (Vitamin B1 Tab) 100 mg PO DAILY [facility] Results - Vital Signs Recent Vital Signs: Last Vital Signs Temp 98.8 F 04/25/18 08:00 Pulse 76 04/25/18 08:00 Resp 21 04/25/18 08:00 BP 162/87 H 04/25/18 08:00 Pulse Ox 96 04/24/18 21:40 - Labs Result Diagrams: 04/25/18 06:25 04/25/18 06:25 Labs: Laboratory Results - last 24 hr 04/24/18 04/24/18 04/25/18 18:18 21:58 06:25 WBC RBC Hgb Hct MCV MCH MCHC RDW Plt Count MPV Gran % Lymph % (Auto) [place] % (Auto) Eos % (Auto) Baso % (Auto) Gran # Lymph # (Auto) [place] # (Auto) Eos # (Auto) Baso # (Auto) Sodium Potassium Chloride Carbon Dioxide Anion Gap BUN Creatinine Est GFR ( Amer) Est GFR (Non-Af Amer) POC Glucose (mg/dL) 93 Random Glucose Hemoglobin A1c 6.1 Calcium Magnesium Total Bilirubin AST ALT Alkaline Phosphatase Total Protein Albumin Globulin Albumin/Globulin Ratio Triglycerides Cholesterol LDL Cholesterol Direct HDL Cholesterol Blood Type O POSITIVE Blood Type Confirm Antibody Screen Negative BBK History Checked No verified bt 04/25/18 04/25/18 04/25/18 06:25 06:25 06:25 WBC 6.6 D RBC 4.84 Hgb 12.8 L Hct 40.7 L MCV 84.1 MCH 26.4 MCHC 31.4 RDW 15.0 H Plt Count 262 MPV 8.9 Gran % 60.6 Lymph % (Auto) 31.6 [place] % (Auto) 7.0 H Eos % (Auto) 0.5 L Baso % (Auto) 0.3 Gran # 4.00 Lymph # (Auto) 2.1 [place] # (Auto) 0.5 Eos # (Auto) 0.0 Baso # (Auto) 0.02 Sodium 144 Potassium 4.1 Chloride 105 Carbon Dioxide 28 Anion Gap 16 BUN 17 Creatinine 1.1 Est GFR ( Amer) > 60 Est GFR (Non-Af Amer) > 60 POC Glucose (mg/dL) Random Glucose 103 Hemoglobin A1c Calcium 9.8 Magnesium Total Bilirubin 0.6 AST 40 ALT 46 Alkaline Phosphatase 98 Total Protein 8.0 Albumin 4.3 Globulin 3.7 Albumin/Globulin Ratio 1.2 Triglycerides 160 Cholesterol 202 H LDL Cholesterol Direct 122 HDL Cholesterol 44 Blood Type Blood Type Confirm O POSITIVE Antibody Screen BBK History Checked 04/25/18 04/25/18 04/25/18 06:25 07:42 11:44 WBC RBC Hgb Hct MCV MCH MCHC RDW Plt Count MPV Gran % Lymph % (Auto) [place] % (Auto) Eos % (Auto) Baso % (Auto) Gran # Lymph # (Auto) [place] # (Auto) Eos # (Auto) Baso # (Auto) Sodium Potassium Chloride Carbon Dioxide Anion Gap BUN Creatinine Est GFR ( Amer) Est GFR (Non-Af Amer) POC Glucose (mg/dL) 97 96 Random Glucose Hemoglobin A1c Calcium Magnesium 2.4 H Total Bilirubin AST ALT Alkaline Phosphatase Total Protein Albumin Globulin Albumin/Globulin Ratio Triglycerides Cholesterol LDL Cholesterol Direct HDL Cholesterol Blood Type Blood Type Confirm Antibody Screen BBK History Checked Assessment & Plan - Assessment and Plan (Free Text) Assessment: 52 yr old male with right lateral ingerior cerebellar peduncle stroke, that has components of Wallenburgs syndrome. I am worried that he has two processes occuring and will recommend NABIL CTA: normal, no occlusion noted. CTHead: right inferior cerebellar stroke MRI: pending. ECHO: pending. NABIL: pending. Plan: 1. Admit to ICU 2. Start mannitol 0.25 mg/kg 3. Neurosurgery consult appreciated. 4. Neuro checks q 4 5. MRI Brain without vazquez today to evaluate for embolic phenomenon. 6. DVT with SCDs 7. aspirin 325 mg po daily 8. PT/ST/OT 9.Cardiology consult: recommend NABIL Thank you Dr. tatum
--- NOTE | 2018-04-25 16:47 | CARD ---
APPROVED REPORT EXAM: Two-dimensional and M-mode echocardiogram with Doppler and color Doppler. INDICATION CVA/TIA BUBBLE STUDY 2D DIMENSIONS Left Atrium (2D)4.0 (1.6-4.0cm)IVSd1.8 (0.7-1.1cm) LVDd4.3 (3.9-5.9cm)PWd1.4 (0.7-1.1cm) LVDs2.8 (2.5-4.0cm)FS (%) 34.5 % LVEF (%)64.0 (>50%) M-Mode DIMENSIONS Aortic Root3.10 (2.2-3.7cm)Aortic Cusp Exc.1.80 (1.5-2.0cm) Aortic Valve AoV Peak Sodgxjaq483.0cm/Fracisco Peak GR.7mmHg Mitral Valve MV E Saqjuxfl96.8cm/sMV A Aeacembj04.1cm/sE/A ratio0.9 TDI E/Lateral E'0.0E/Medial E'0.0 Tricuspid Valve TR Peak [id number] [id number] Peak Gr.7mmHg [id number] LEFT VENTRICLE The left ventricle is normal size. There is mild concentric left ventricular hypertrophy. The left ventricular function is normal.EF-60-65% There is normal LV segmental wall motion. Transmitral Doppler flow pattern is Grade III-reversible restrictive diastolic dysfunction. No left ventricle thrombus noted on this study. There is no left ventricular aneurysm. There is no mass noted in the left ventricle. RIGHT VENTRICLE The right ventricle is normal size. There is normal right ventricular wall thickness. The right ventricular systolic function is normal. ATRIA The left atrium size is normal.( upper limit normal). The right atrium size is normal. The interatrial septum is intact with no evidence for an atrial septal defect., By Bubble study. ( bubble did not Cross) AORTIC VALVE The aortic valve is thickened but opens well. The aortic valve is mildly sclerotic. No aortic regurgitation is present. There is no aortic valvular stenosis. There is no aortic valvular vegetation. MITRAL VALVE The mitral valve is thickened but opens well. Mitral annular calcification is mild. Mitral regurgitation is trace. There is no mitral valve stenosis. There is no evidence of mitral valve prolapse. TRICUSPID VALVE The tricuspid valve leaflets are thickened , but open well. There is trace tricuspid regurgitation.RVSP-17 mmof hg. There is no tricuspid valve stenosis. There is no tricuspid valve prolapse or vegetation. PULMONIC VALVE The pulmonary valve is normal in structure. There is no pulmonic valvular regurgitation. There is no pulmonic valvular stenosis. GREAT VESSELS The aortic root is normal in size. The ascending aorta is normal in size. The pulmonary artery is normal. The IVC is normal in size and collapses >50% with inspiration. PERICARDIAL EFFUSION There is no pleural effusion. There is no pericardial effusion. <Conclusion> Normal chamber size. EF-60-65% The aortic valve is thickened but opens well. The aortic valve is mildly sclerotic. Mitral regurgitation is trace. There is trace tricuspid regurgitation.RVSP-17 mmof hg. The IVC is normal in size and collapses >50% with inspiration. There is no pericardial effusion. No vegetation or thrombus noted. The interatrial septum is intact with no evidence for an atrial septal defect., By Bubble study. ( bubble did not Cross)
--- NOTE | 2018-04-25 18:37 | MRI ---
PROCEDURE: MRI BRAIN WITHOUT CONTRAST HISTORY: stroke COMPARISON: Noncontrast head CT 04/14/2018. TECHNIQUE: Multiplanar, multisequence MR images of the brain were obtained without intravenous contrast enhancement. FINDINGS: HEMORRHAGE: None DWI: The examination reiterates not only PICA territory infarction on acute or subacute basis at the root inferior right cerebellum but also limited ischemic restriction at the medial right parieto-occipital junction posteriorly indicating right PACU RN sub distribution infarct. No additional infarct appreciated on acute or subacute basis. No significant mass effect exerted on the brainstem. BRAIN PARENCHYMA: Mild chronic microangiopathy is appreciated in the periventricular and centrum semiovale white matter distributions. No suspicious extra-axial collection identified. Except for infarcted territories, corticomedullary differentiation is adequate. VENTRICLES: Unremarkable. No hydrocephalus. CRANIUM: Unremarkable. ORBITS: Grossly unremarkable. PARANASAL SINUSES/MASTOIDS: Clear VASCULAR SYSTEM: Skull base flow voids intact. 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 IMPRESSION: A mildly large right PICA infarct affecting the right cerebellum with a small right PACU RN sub distribution infarction affecting right parieto-occipital junction posteriorly. Mild early chronic microangiopathy identified throughout the cerebrum are predominantly bilateral periventricular and centrum semiovale in location.
[2018-04-26 01:25] LABS: BARBITURATES, UR NEGATIVE (NEGATIVE); BENZODIAZEPINES, UR NEGATIVE (NEGATIVE); OPIATES, UR NEGATIVE (NEGATIVE); PHENCYCLIDINE, UR NEGATIVE (NEGATIVE)
--- NOTE | 2018-04-26 05:52 | PCM.STROKE ---
Interval History Critical Care Time Spent (in minutes): 20 Stroke Date: 04/25/18 - Treatment DVT Prophylaxis: Heparin (5000 units SC Q 12) Antiplatelet: Acetylsalicylic acid (ASA) (81 mg Po daily), Plavix (75 mg PO daily) Statin: Atrovastatin (40 mg PO daily) - Education Written Stroke Education provided regarding: personal risk factors, stroke warning sign/symptoms (both epatient and family member), how to activate emergency medical services, need to follow up after discharge ([place] patient and family member) NIHSS Stroke Scale - Date/Time Evaluation Performed Date Performed: 04/25/18 Time Performed: 18:30 - How Severe is the Stroke Level of Consciousness: 0=Alert LOC to Questions: 0=Both comments correct LOC to commands: 0=Obeys both correctly Best Gaze: 0=Normal Visual: 0=No visual loss Facial: 0=Normal Motor Arm - Left: 0=No drift Motor Arm - Right: 0=No drift Motor Leg - Left: 0=No drift Motor Leg - Right: 0=No drift Limb Ataxia: 0=Absent Sensory: 0=Normal Best Language: 0=No aphasia Dysarthia: 0=Normal articulation Extinction & Inattention (Neglect): 0=Normal, no object Score: 0 Exam - Vital Sign Vital Signs: Temp Pulse Resp BP Pulse Ox 98.8 F 74 19 155/77 H 100 04/26/18 00:00 04/26/18 03:20 04/26/18 03:20 04/26/18 03:01 04/26/18 03:20 Constitutional: Normal appearing Right Pupil: Reactive Right Pupil Size (in mm): 3 Left Pupil: Reactive Left Pupil Size (in mm): 3 Cardiovascular: Regular rate & rhythm Mental Status: Normal: Orientation Cranial Nerve: Normal: Visual [place], Extraocular movement intact, Facial Sensation, Facial Strength, Hearing, Palate/Tongue Movement, Shoulder Strength Motor: Tone Neuro motor strength exam: Left Upper Extremity: 5, Right Upper Extremity: 5, Left Lower Extremity: 5, Right Lower Extremity: 5 Flexor Plantar Reflex: Normal Coordination: Finger/nose - Data reviewed Laboratory results: 04/25/18 06:25 04/25/18 06:25 Triglycerides 160 mg/dL (35-160) 04/25/18 06:25 Cholesterol 202 mg/dL (130-200) H 04/25/18 06:25 LDL Cholesterol Direct 122 mg/dL (0-129) 04/25/18 06:25 HDL Cholesterol 44 mg/dL (29-60) 04/25/18 06:25 Hemoglobin A1c 6.1 % (4.2-6.5) 04/25/18 06:25 MRI images: Viewed and interpreted by me (rad by Dr. Lutz showed a mildly large right PICA affecting the right cerebellum with small right PICA sub distribution infarctin affecting parieto-occipital junction posteriorly. Mild early chronic microangiopathy identified throughout the cerebrum are predominantly bilateral periventricular and centrum semiovale in the location.) Echo: Nomal EF and no atrial defect and thrombus noted Assessment and Plan (1) Ischemic stroke Assessment & Plan: Case discussed with Dr. Asher, continue all current medical, physical, occupational, and speech therapies. Recommend re-evaluation for swallowing today to upgrade diet, plavix 75 mg PO daily, treat any electrolyte abnormalities, blood pressure control, and keep head elevated at least [address] scan of the head without contrast today.Pending hypercoagulability studies. Status: Acute
[2018-04-26 06:57] LABS: BASO # 0.03 K/mm3 (0.0-2.0); BASO % 0.4 % (0.0-3.0); EOS % 0.4 % (1.5-5.0); GRAN # 4.04 (1.4-6.5); GRAN % 60.6 % (50.0-68.0); HEMOGLOBIN 13.4 g/dL (14.0-18.0); LYMPH # 2.1 (1.2-3.4); LYMPH % 30.7 % (22.0-35.0); MEAN CELL VOLUME 84.8 fl (80.0-105.0); MEAN CORPUSCULAR HEMOGLOBIN 27.1 pg (25.0-35.0); MEAN CORPUSCULAR HGB CONC 31.9 g/dl (31.0-37.0); MONO # 0.5 (0.1-0.6); MONO % 7.9 % (1.0-6.0); RBC 4.95 10^6/uL (3.5-6.1); RED CELL DISTRIBUTION WIDTH 14.7 % (11.5-14.5); WHITE BLOOD COUNT 6.7 10^3/ul (4.5-11.0)
[2018-04-26 07:06] LABS: ALBUMIN 4.1 g/dL (3.0-4.8); ALT/SGPT 43 U/L (7-56); AST/SGOT 39 U/L (17-59); BLOOD UREA NITROGEN 17 mg/dL (7-21); CALCIUM 9.9 mg/dL (8.4-10.5); GFR AFRICAN-AMERICAN > 60; GFR NON-AFRICAN AMERICAN > 60
--- NOTE | 2018-04-26 07:41 | CP.PCM.PN ---
Subjective - Date & Time of Evaluation Date of Evaluation: 04/24/18 Time of Evaluation: 18:30 - Subjective Subjective: NIHSS Objective - Vital Signs/Intake and Output Vital Signs (last 24 hours): Temp Pulse Resp BP Pulse Ox 97.9 F 82 15 133/74 91 L 04/26/18 04:00 04/26/18 06:00 04/26/18 06:00 04/26/18 06:00 04/26/18 06:00 Intake and Output: 04/26/18 04/26/18 06:59 18:59 Intake Total 200 Output Total 350 Balance -150 - Medications Medications: Current Medications Aspirin (Aspirin Chewable) 81 mg PO DAILY [facility] Last Admin: 04/25/18 10:37 Dose: 81 mg Atorvastatin Calcium (Lipitor) 40 mg PO DIN [facility] Last Admin: 04/25/18 20:34 Dose: 40 mg Clopidogrel Bisulfate (Plavix) 75 mg PO DAILY [facility] Famotidine (Pepcid) 40 mg PO HS [facility] Last Admin: 04/25/18 21:53 Dose: 40 mg Folic Acid (Folic Acid) 1 mg PO DAILY [facility] Heparin Sodium (Porcine) (Heparin) 5,000 units SC Q12 [facility] PRN Reason: Protocol Last Admin: 04/25/18 21:51 Dose: 5,000 units Mannitol (Mannitol) 100 mls @ 100 mls/hr IV Q8 [facility] Last Admin: 04/26/18 05:54 Dose: 100 mls/hr Insulin Human Regular (Humulin R Low) 0 units SC ACHS PRE[facility]I PRN Reason: Protocol Last Admin: 04/25/18 22:00 Dose: Not Given Multivitamins (Thera Tab) 1 tab PO DAILY [facility] Ondansetron HCl (Zofran Inj) 4 mg IVP Q8 PRN PRN Reason: Nausea/Vomiting Thiamine HCl (Vitamin B1 Tab) 100 mg PO DAILY [facility] - Labs Labs: 04/26/18 06:35 04/26/18 06:35 NIHSS Scale ([place]) Time Performed: 19:00 - How Severe is the Stoke 24 hours post onset S/S Level of Consciousness: 0=Alert LOC to Questions: 0=Both comments correct LOC to commands: 0=Obeys both correctly Best Gaze: 1=Partial gaze palsy Visual: 0=No visual loss Facial: 2=Partial (lower face paralysis) Motor Arm - Left: 0=No drift Motor Arm - Right: 0=No drift Motor Leg - Left: 0=No drift Motor Leg - Right: 0=No drift Limb Ataxia: 1=Present Upper or Lower Sensory: 0=Normal Best Language: 0=No aphasia Dysarthia: 0=Normal articulation Extinction & Inattention (Neglect): 0=Normal, no object Score: 4 Risk Level: Minor Stroke Risk
[2018-04-26] MEDS: Insulin Reg-LOW-Coverage SC SCH ×4 (09:11→21:21)
--- NOTE | 2018-04-26 10:21 | CT ---
PROCEDURE: CT HEAD WITHOUT CONTRAST. HISTORY: ischemic stroke post mannitol infusion COMPARISON: 05/02/2018 TECHNIQUE: Axial computed tomography images were obtained through the head/brain without intravenous contrast. Radiation dose: Total exam DLP = 977 mGy-cm. This CT exam was performed using one or more of the following dose reduction techniques: Automated exposure control, adjustment of the mA and/or kV according to patient size, and/or use of iterative reconstruction technique. FINDINGS: HEMORRHAGE: No intracranial hemorrhage. BRAIN: No mass effect or edema. There is a well-defined infarct in the right inferior cerebellar hemisphere. There is no change from the earlier study VENTRICLES: Unremarkable. No hydrocephalus. CALVARIUM: Unremarkable. PARANASAL SINUSES: Unremarkable as visualized. No significant inflammatory changes. MASTOID AIR CELLS: Unremarkable as visualized. No inflammatory changes. OTHER FINDINGS: None. IMPRESSION: There is a well-defined infarct in the right inferior cerebellar hemisphere. There is no change from the earlier study. There is no evidence of hemorrhage
[2018-04-26] MEDS: Multivitamin Therapeutic Tab PO SCH (10:35)
--- NOTE | 2018-04-26 14:45 | CP.PCM.PN ---
<[place] Langley - Last Filed: 04/26/18 14:37> Subjective - Date & Time of Evaluation Date of Evaluation: 04/26/18 Time of Evaluation: 10:00 - Subjective Subjective: [place] Langley, PGY1, Medicine Progress Note for Dr Castrejon: Patient seen and examined at bedside. No acute events overnight. Pt states that he started PO diet last night, tolerating it well. Reports that he feels weak on the right side. Denies new focal deficits, states that dizziness is mildly improved. States that he lives with his son, who can help him out at home. Denies fever, chills, nausea, vomiting, abdominal pain. Objective - Vital Signs/Intake and Output Vital Signs (last 24 hours): Temp Pulse Resp BP Pulse Ox 97.9 F 82 15 133/74 91 L 04/26/18 04:00 04/26/18 06:00 04/26/18 06:00 04/26/18 06:00 04/26/18 06:00 Intake and Output: 04/26/18 04/26/18 06:59 18:59 Intake Total 200 Output Total 350 Balance -150 - Medications Medications: Current Medications Aspirin (Aspirin Chewable) 81 mg PO DAILY [facility] Last Admin: 04/26/18 10:34 Dose: 81 mg Atorvastatin Calcium (Lipitor) 40 mg PO DIN [facility] Last Admin: 04/25/18 20:34 Dose: 40 mg Clopidogrel Bisulfate (Plavix) 75 mg PO DAILY [facility] Last Admin: 04/26/18 10:35 Dose: 75 mg Famotidine (Pepcid) 40 mg PO HS [facility] Last Admin: 04/25/18 21:53 Dose: 40 mg Folic Acid (Folic Acid) 1 mg PO DAILY [facility] Last Admin: 04/26/18 10:34 Dose: 1 mg Heparin Sodium (Porcine) (Heparin) 5,000 units SC Q12 [facility] PRN Reason: Protocol Last Admin: 04/26/18 10:34 Dose: 5,000 units Insulin Human Regular (Humulin R Low) 0 units SC ACHS [facility] PRN Reason: Protocol Last Admin: 04/26/18 09:11 Dose: Not Given Multivitamins (Thera Tab) 1 tab PO DAILY [facility] Last Admin: 04/26/18 10:35 Dose: 1 tab Ondansetron HCl (Zofran Inj) 4 mg IVP Q8 PRN PRN Reason: Nausea/Vomiting Thiamine HCl (Vitamin B1 Tab) 100 mg PO BID [facility] Last Admin: 04/26/18 10:35 Dose: 100 mg - Labs Labs: 04/26/18 06:35 04/26/18 10:00 - Constitutional Appears: Non-toxic, No Acute Distress, Older Than Stated Age - Head Exam Head Exam: ATRAUMATIC, NORMOCEPHALIC - Eye Exam Eye Exam: EOMI, PERRL. absent: Conjunctival injection, Normal appearance, Periorbital tenderness, Scleral icterus Pupil Exam: NORMAL ACCOMODATION, PERRL. absent: Irregular, Miosis, Mydriatic, Unequal Additional comments: + right upper eyelid drop - ENT Exam ENT Exam: Mucous Membranes Moist - Neck Exam Neck Exam: Full ROM - Respiratory Exam Respiratory Exam: Clear to Ausculation Bilateral, NORMAL BREATHING PATTERN. absent: Accessory Muscle Use, Rales, Rhonchi, Wheezes, Stridor - Cardiovascular Exam Cardiovascular Exam: RRR, +S1, +S2. absent: Murmur - GI/Abdominal Exam GI & Abdominal Exam: Soft, Normal Bowel Sounds. absent: Distended, Firm, Guarding, Rigid, Tenderness, Mass, Organomegaly, Rebound - Extremities Exam Extremities Exam: Pedal Edema. absent: Calf Tenderness - Back Exam Back Exam: NORMAL INSPECTION. absent: CVA tenderness (L), CVA tenderness (R) - Neurological Exam Neurological Exam: Abnormal Gait, Alert, Awake, Oriented x3 Neuro motor strength exam: Left Upper Extremity: 5, Right Upper Extremity: 5, Left Lower Extremity: 5, Right Lower Extremity: 5 Additional comments: + sensation intact throughout - Psychiatric Exam Psychiatric exam: Normal Affect, Normal Mood - Skin Skin Exam: Dry, Normal Color, Warm Assessment and Plan - Assessment and Plan (Free Text) Assessment: 52 year old male with history of tobacco and alcohol use, admitted for right sided CVA: Right sided cerebellar ischemic stroke/Wallenberg Syndrome -Stable, afebrile -not TPA candidate due to timeline -CT head showed acute or subacute infarct in the right cerebellar hemisphere in the distribution of posterior inferior cereballar artery -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 -CTA head/neck: neg. 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 -Hypercoagulable workup in progress -Speech eval: finely chopped, nectar thick liquids. -HHD started, as per speech recs -Physical therapy: acute rehab -Occupational therapy: acute rehab -HgA1c 6.1 -Neuro consulted, Mannitol 25mg IV Q8H started -Allow for permissive hypertension 180/90 -Seizure precautions, Aspiration precautions, Continue Neurochecks Dyslipidemia -Lipid panel: Triglycerides 160, Cholesterol 202, LDL 122, HDL 44 -Continue Lipitor 40mg PO HS Tobacco use/Alcohol use -Patient smokes 1-2 black and mild cigarettes a day -Cessation advised -F/U UTOX -CIWA 0 -Banana bag discontinued -Started on Thiamine, Multivitamins, Folic acid GI/DVT Prophylaxis Pepcid 20mg PO daily Heparin 5000 units SC Q12H Disposition: Patient does not have a PMD, will have patient follow up with [facility] clinic upon discharge. Case seen and discussed with Dr Castrejon. [place] Langley, PGY1 <Arti Castrejon - Last Filed: 04/26/18 18:01> Objective - Vital Signs/Intake and Output Vital Signs (last 24 hours): Temp Pulse Resp BP Pulse Ox 97.9 F 82 15 133/74 91 L 04/26/18 04:00 04/26/18 06:00 04/26/18 06:00 04/26/18 06:00 04/26/18 06:00 Intake and Output: 04/26/18 04/26/18 06:59 18:59 Intake Total 200 Output Total 350 Balance -150 - Medications Medications: Current Medications Aspirin (Aspirin Chewable) 81 mg PO DAILY [facility] Last Admin: 04/26/18 10:34 Dose: 81 mg Atorvastatin Calcium (Lipitor) 40 mg PO DIN [facility] Last Admin: 04/26/18 17:08 Dose: 40 mg Clopidogrel Bisulfate (Plavix) 75 mg PO DAILY [facility] Last Admin: 04/26/18 10:35 Dose: 75 mg Famotidine (Pepcid) 40 mg PO HS [facility] Last Admin: 04/25/18 21:53 Dose: 40 mg Folic Acid (Folic Acid) 1 mg PO DAILY [facility] Last Admin: 04/26/18 10:34 Dose: 1 mg Heparin Sodium (Porcine) (Heparin) 5,000 units SC Q12 [facility] PRN Reason: Protocol Last Admin: 04/26/18 10:34 Dose: 5,000 units Insulin Human Regular (Humulin R Low) 0 units SC ACHS [facility] PRN Reason: Protocol Last Admin: 04/26/18 17:05 Dose: Not Given Multivitamins (Thera Tab) 1 tab PO DAILY [facility] Last Admin: 04/26/18 10:35 Dose: 1 tab Ondansetron HCl (Zofran Inj) 4 mg IVP Q8 PRN PRN Reason: Nausea/Vomiting Thiamine HCl (Vitamin B1 Tab) 100 mg PO BID [facility] Last Admin: 04/26/18 17:08 Dose: 100 mg - Labs Labs: 04/26/18 06:35 04/26/18 10:00 Attending/Attestation - Attestation I have personally seen and examined this patient.: Yes I have fully participated in the care of the patient.: Yes I have reviewed all pertinent clinical information, including history, physical exam and plan: Yes Notes (Text): 04/26/18 17:58 52 year old male with history of tobacco and alcohol use presents with complaint of lower extremities weakness, gait imbalance and dizziness. CT head showed acute or subacute inferior right cerebellar hemisphere infarct. CTA head/neck was negative for occlusion. MRI brain showed mildly large PICA infarct affecting the right cerebellum with a small right PRODUCT CONTROL AND LOGISTICS ANALYST subdistribution infarct affecting right parietooccipital junction. Carotid dopplers and echocardiogram reviewed as above. Patient is on aspirin, plavix and lipitor. Neurology and PT are following the patient; recommending acute rehab. Patient was counselled on alcohol and smoking cessation. Family is at bedside and questions were answered. Arti Castrejon MD Hospitalist.
--- NOTE | 2018-04-26 18:55 | CON ---
DATE: 04/26/2018 CARDIOLOGY CONSULT REASON FOR CONSULTATION: Acute right cerebellar infarction. HISTORY OF PRESENT ILLNESS: The patient is a 52-year-old male, who is mildly obese, originally from [place], who has a history of hypertension, who was brought in by his daughter because of feeling dizzy and about to faint. The patient stated that his symptoms started 2 days earlier. The patient denies any speech difficulty. We do not have history of stroke or heart attack in the past. SOCIAL HISTORY: The patient is a smoker and occasional drinker. MEDICATIONS: Aspirin 81 mg once a day, folic acid 1 mg once a day, heparin 5000 units subcutaneous twice a day, Lipitor 40 mg once a day, Pepcid 40 mg p.o. once a day, Plavix 75 mg once a day, thiamin 100 mg once a day, Zofran 4 mg intravenously every 8 hours p.r.n. for nausea and vomiting. REVIEW OF SYSTEMS: The patient did report nausea. The patient denies any retrosternal chest pain or shortness of breath at this time. PHYSICAL EXAMINATION: GENERAL: The patient is a middle-aged male, who does not appear to be in any acute distress. VITAL SIGNS: Blood pressure 130/74, heart rate 75, respirations 15, temperature 97.9. HEENT: Normocephalic. CHEST: Clear. HEART: S1 and S2 regular. EXTREMITIES: No edema. LABORATORY DATA: Today's SMA-7 is entirely within normal limits. Magnesium is 2.6. Troponins is 0.01 on admission. Total cholesterol slightly elevated at 202. The rest of the lipid profile is within normal limit and TSH level is within normal limit. Today's hemoglobin and hematocrit 13.4 and 42. White count and platelet count are within normal limit. Urine drug screen is negative. Head CT scan without contrast on admission, acute or subacute infarct in the right inferior cerebellar hemisphere and the distribution of the posterior inferior cerebellar artery. Brain MRI revealed mildly large right posterior and inferior cerebellar artery infarct affecting the right cerebellum with small right posterior cerebellar artery subdistribution infarct affecting the right parietooccipital junction posteriorly. A repeat head CT scan today revealed there is well-defined infarct in the right inferior cerebellar hemisphere. No change from earlier study. EKG revealed sinus rhythm with nonspecific T-wave abnormality. Echocardiography study: Mildly sclerotic aortic valve. Normal ejection fraction. ASSESSMENT: 1. Acute right inferior cerebellar infarct. 2. Hypertension. 3. Obesity. 4. History of ethyl alcohol abuse. RECOMMENDATIONS: Continue current aspirin, folic acid, subcutaneous heparin, Lipitor, Plavix and thiamine. Abdifatah Hurtado MD
[2018-04-27 07:16] LABS: ALB/GLOB RATIO 1.2 (1.1-1.8); ALT/SGPT 47 U/L (7-56); AST/SGOT 38 U/L (17-59); BLOOD UREA NITROGEN 17 mg/dL (7-21); CALCIUM 9.5 mg/dL (8.4-10.5); GFR AFRICAN-AMERICAN > 60; GFR NON-AFRICAN AMERICAN > 60
[2018-04-27 07:22] LABS: BASO # 0.03 K/mm3 (0.0-2.0); BASO % 0.4 % (0.0-3.0); EOS % 0.4 % (1.5-5.0); GRAN # 4.51 (1.4-6.5); GRAN % 62.8 % (50.0-68.0); HEMOGLOBIN 12.7 g/dL (14.0-18.0); LYMPH # 2.2 (1.2-3.4); LYMPH % 29.9 % (22.0-35.0); MEAN CELL VOLUME 84.3 fl (80.0-105.0); MEAN CORPUSCULAR HEMOGLOBIN 27.4 pg (25.0-35.0); MEAN CORPUSCULAR HGB CONC 32.5 g/dl (31.0-37.0); MEAN PLATELET VOLUME 9.1 fl (7.0-11.0); MONO # 0.5 (0.1-0.6); MONO % 6.5 % (1.0-6.0); RBC 4.64 10^6/uL (3.5-6.1); RED CELL DISTRIBUTION WIDTH 14.5 % (11.5-14.5); WHITE BLOOD COUNT 7.2 10^3/ul (4.5-11.0)
[2018-04-27] MEDS: Insulin Reg-LOW-Coverage SC SCH ×4 (08:35→22:38)
[2018-04-27] MEDS: Multivitamin Therapeutic Tab PO SCH (09:53)
[2018-04-27 11:57] LABS: HDL CHOLESTEROL 40 mg/dL (29-60)
[2018-04-27 12:10] LABS: LDL CHOLESTEROL 112 mg/dL (0-129)
--- NOTE | 2018-04-27 19:42 | CP.PCM.PN ---
<Padma Riley - Last Filed: 04/27/18 19:43> Subjective - Date & Time of Evaluation Date of Evaluation: 04/27/18 Time of Evaluation: 09:39 - Subjective Subjective: Padma Riley PGY-1: Hospitalist Service Patient seen and examined at bedside. Patient endorses no complaints. Family at bedside. Nurse report no events overnight. Objective - Vital Signs/Intake and Output Vital Signs (last 24 hours): Temp Pulse Resp BP Pulse Ox 97.8 F 87 18 137/87 98 04/27/18 18:00 04/27/18 18:00 04/27/18 18:00 04/27/18 18:00 04/27/18 18:00 Intake and Output: 04/27/18 04/28/18 18:59 06:59 Intake Total 360 Output Total 600 Balance -240 - Medications Medications: Current Medications Acetaminophen (Tylenol 325mg Tab) 650 mg PO Q6H PRN PRN Reason: Pain, Mild (1-3) Last Admin: 04/27/18 17:35 Dose: 650 mg Aspirin (Aspirin Chewable) 81 mg PO DAILY [facility] Last Admin: 04/27/18 09:53 Dose: 81 mg Atorvastatin Calcium (Lipitor) 40 mg PO DIN [facility] Last Admin: 04/27/18 17:35 Dose: 40 mg Clopidogrel Bisulfate (Plavix) 75 mg PO DAILY [facility] Last Admin: 04/27/18 09:53 Dose: 75 mg Famotidine (Pepcid) 40 mg PO HS [facility] Last Admin: 04/26/18 21:22 Dose: 40 mg Folic Acid (Folic Acid) 1 mg PO DAILY [facility] Last Admin: 04/27/18 09:52 Dose: 1 mg Heparin Sodium (Porcine) (Heparin) 5,000 units SC Q12 [facility] PRN Reason: Protocol Last Admin: 04/27/18 09:53 Dose: 5,000 units Insulin Human Regular (Humulin R Low) 0 units SC ACHS [facility] PRN Reason: Protocol Last Admin: 04/27/18 17:32 Dose: Not Given Multivitamins (Thera Tab) 1 tab PO DAILY [facility] Last Admin: 04/27/18 09:53 Dose: 1 tab Ondansetron HCl (Zofran Inj) 4 mg IVP Q8 PRN PRN Reason: Nausea/Vomiting Thiamine HCl (Vitamin B1 Tab) 100 mg PO BID [facility] Last Admin: 04/27/18 17:35 Dose: 100 mg - Labs Labs: 04/27/18 06:00 04/27/18 06:00 - Head Exam Head Exam: ATRAUMATIC, NORMOCEPHALIC - Eye Exam Eye Exam: EOMI, Normal appearance - ENT Exam ENT Exam: Mucous Membranes Moist - Neck Exam Neck Exam: Normal Inspection - Respiratory Exam Respiratory Exam: Clear to Ausculation Bilateral, NORMAL BREATHING PATTERN. absent: Accessory Muscle Use - Cardiovascular Exam Cardiovascular Exam: RRR, +S1, +S2 - GI/Abdominal Exam GI & Abdominal Exam: Soft, Normal Bowel Sounds - Extremities Exam Extremities Exam: Normal Inspection. absent: Calf Tenderness - Back Exam Back Exam: absent: CVA tenderness (L), CVA tenderness (R) - Neurological Exam Neurological Exam: Alert, Awake Neuro motor strength exam: Left Upper Extremity: 5, Right Upper Extremity: 5, Left Lower Extremity: 5, Right Lower Extremity: 5 - Psychiatric Exam Psychiatric exam: Normal Affect, Normal Mood - Skin Skin Exam: Dry, Intact, Normal Color, Warm Assessment and Plan - Assessment and Plan (Free Text) Assessment: 52 year old male with history of tobacco and alcohol use, admitted for right sided CVA: Right sided cerebellar ischemic stroke/Wallenberg Syndrome -Stable, afebrile -not TPA candidate due to timeline -CT head showed acute or subacute infarct in the right cerebellar hemisphere in the distribution of posterior inferior cereballar artery -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 -CTA head/neck: neg. 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 -Hypercoagulable workup in progress -Speech eval: finely chopped, nectar thick liquids. -HHD started, as per speech recs -Physical therapy: acute rehab -Occupational therapy: acute rehab -HgA1c 6.1 -Neuro consulted, -Allow for permissive hypertension 180/90 -Seizure precautions, Aspiration precautions, Continue Neurochecks Dyslipidemia -Lipid panel: Triglycerides 160, Cholesterol 202, LDL 122, HDL 44 -Continue Lipitor 40mg PO HS Tobacco use/Alcohol use -Patient smokes 1-2 black and milds a day -Cessation advised -F/U UTOX -CIWA 0 -Banana bag discontinued -Started on Thiamine, Multivitamins, Folic acid GI/DVT Prophylaxis Pepcid 20mg PO daily Heparin 5000 units SC Q12H Disposition: Patient does not have a PMD, will have patient follow up with [facility] clinic upon discharge. Case seen and discussed with Dr Castrejon. Padma Riley PGY1 <Arti Castrejon - Last Filed: 04/28/18 07:05> Objective - Vital Signs/Intake and Output Vital Signs (last 24 hours): Temp Pulse Resp BP Pulse Ox 99.8 F H 82 18 128/92 H 99 04/28/18 00:01 04/28/18 02:00 04/27/18 18:00 04/28/18 00:01 04/28/18 00:01 Intake and Output: 04/28/18 04/28/18 06:59 18:59 Intake Total 120 Output Total 600 Balance -480 - Medications Medications: Current Medications Acetaminophen (Tylenol 325mg Tab) 650 mg PO Q6H PRN PRN Reason: Pain, Mild (1-3) Last Admin: 04/27/18 17:35 Dose: 650 mg Aspirin (Aspirin Chewable) 81 mg PO DAILY [facility] Last Admin: 04/27/18 09:53 Dose: 81 mg Atorvastatin Calcium (Lipitor) 40 mg PO DIN [facility] Last Admin: 04/27/18 17:35 Dose: 40 mg Clopidogrel Bisulfate (Plavix) 75 mg PO DAILY [facility] Last Admin: 04/27/18 09:53 Dose: 75 mg Famotidine (Pepcid) 40 mg PO HS [facility] Last Admin: 04/27/18 21:06 Dose: 40 mg Folic Acid (Folic Acid) 1 mg PO DAILY [facility] Last Admin: 04/27/18 09:52 Dose: 1 mg Heparin Sodium (Porcine) (Heparin) 5,000 units SC Q12 [facility] PRN Reason: Protocol Last Admin: 04/27/18 21:06 Dose: 5,000 units Insulin Human Regular (Humulin R Low) 0 units SC ACHS [facility] PRN Reason: Protocol Last Admin: 04/27/18 22:38 Dose: Not Given Multivitamins (Thera Tab) 1 tab PO DAILY [facility] Last Admin: 04/27/18 09:53 Dose: 1 tab Ondansetron HCl (Zofran Inj) 4 mg IVP Q8 PRN PRN Reason: Nausea/Vomiting Thiamine HCl (Vitamin B1 Tab) 100 mg PO BID [facility] Last Admin: 04/27/18 17:35 Dose: 100 mg - Labs Labs: 04/27/18 06:00 04/27/18 21:50 Attending/Attestation - Attestation I have personally seen and examined this patient.: Yes I have fully participated in the care of the patient.: Yes I have reviewed all pertinent clinical information, including history, physical exam and plan: Yes Notes (Text): 04/27/18 52 year old male with history of tobacco and alcohol use presents with complaint of lower extremities weakness, gait imbalance and dizziness. CT head showed acute or subacute inferior right cerebellar hemisphere infarct. CTA head/neck was negative for occlusion. MRI brain showed mildly large PICA infarct affecting the right cerebellum with a small right ENGRAVER JEWELRY subdistribution infarct affecting right parietooccipital junction. Carotid dopplers and echocardiogram reviewed as above. Patient is on aspirin, plavix and lipitor. Neurology is following the patient. Discussed with Dr. Asher today. PT is following as well; currently recommending acute rehab. Patient was counselled on alcohol and smoking cessation. Family is at bedside and questions were answered. Arti Castrejon MD Hospitalist.
--- NOTE | 2018-04-28 00:44 | CP.PCM.PN ---
Subjective - Date & Time of Evaluation Date of Evaluation: 04/06/18 Time of Evaluation: 14:30 - Subjective Subjective: Patient is comfortable, and has no new complaints. No headache,no weakness, no dysarthria. On exam: Right sided ptosis, right sided dysmetria. Rest of neuro exam unchanged. Objective - Vital Signs/Intake and Output Vital Signs (last 24 hours): Temp Pulse Resp BP Pulse Ox 97.8 F 87 18 137/87 98 04/27/18 18:00 04/27/18 18:00 04/27/18 18:00 04/27/18 18:00 04/27/18 18:00 Intake and Output: 04/27/18 04/28/18 18:59 06:59 Intake Total 360 Output Total 600 Balance -240 - Medications Medications: Current Medications Acetaminophen (Tylenol 325mg Tab) 650 mg PO Q6H PRN PRN Reason: Pain, Mild (1-3) Last Admin: 04/27/18 17:35 Dose: 650 mg Aspirin (Aspirin Chewable) 81 mg PO DAILY [facility] Last Admin: 04/27/18 09:53 Dose: 81 mg Atorvastatin Calcium (Lipitor) 40 mg PO DIN [facility] Last Admin: 04/27/18 17:35 Dose: 40 mg Clopidogrel Bisulfate (Plavix) 75 mg PO DAILY [facility] Last Admin: 04/27/18 09:53 Dose: 75 mg Famotidine (Pepcid) 40 mg PO HS [facility] Last Admin: 04/27/18 21:06 Dose: 40 mg Folic Acid (Folic Acid) 1 mg PO DAILY [facility] Last Admin: 04/27/18 09:52 Dose: 1 mg Heparin Sodium (Porcine) (Heparin) 5,000 units SC Q12 [facility] PRN Reason: Protocol Last Admin: 04/27/18 21:06 Dose: 5,000 units Insulin Human Regular (Humulin R Low) 0 units SC ACHS [facility] PRN Reason: Protocol Last Admin: 04/27/18 17:32 Dose: Not Given Multivitamins (Thera Tab) 1 tab PO DAILY [facility] Last Admin: 04/27/18 09:53 Dose: 1 tab Ondansetron HCl (Zofran Inj) 4 mg IVP Q8 PRN PRN Reason: Nausea/Vomiting Thiamine HCl (Vitamin B1 Tab) 100 mg PO BID [facility] Last Admin: 04/27/18 17:35 Dose: 100 mg - Labs Labs: 04/27/18 06:00 04/27/18 21:50 Assessment and Plan - Assessment and Plan (Free Text) Assessment: 52 yr old male with cerebellar stroke, who is now improving. PLan: 1. Continue stroke workup. 2. PT 3. Continue aspirin. Dr. Asher
[2018-04-28 03:51] LABS: CARDIOLIPIN AB (IGA) <11 APL (<=11); CARDIOLIPIN AB (IGG) <14 GPL (<=14)
[2018-04-28 05:01] LABS: B2 GLYCOPROTEIN I AB(IGA) <9 SAU (<=20); B2 GLYCOPROTEIN I AB(IGG) <9 SGU (<=20); B2 GLYCOPROTEIN I AB(IGM) <9 SMU (<=20)
[2018-04-28 07:28] LABS: BASO # 0.03 K/mm3 (0.0-2.0); BASO % 0.5 % (0.0-3.0); EOS # 0.1 (0.0-0.7); EOS % 0.8 % (1.5-5.0); GRAN # 4.16 (1.4-6.5); GRAN % 62.5 % (50.0-68.0); HEMOGLOBIN 12.8 g/dL (14.0-18.0); LYMPH % 29.6 % (22.0-35.0); MEAN CORPUSCULAR HEMOGLOBIN 26.7 pg (25.0-35.0); MEAN CORPUSCULAR HGB CONC 31.8 g/dl (31.0-37.0); MEAN PLATELET VOLUME 9.1 fl (7.0-11.0); MONO # 0.4 (0.1-0.6); MONO % 6.6 % (1.0-6.0); RBC 4.8 10^6/uL (3.5-6.1); RED CELL DISTRIBUTION WIDTH 14.4 % (11.5-14.5); WHITE BLOOD COUNT 6.7 10^3/ul (4.5-11.0)
[2018-04-28 07:56] LABS: ALB/GLOB RATIO 1.2 (1.1-1.8); ALT/SGPT 42 U/L (7-56); AST/SGOT 26 U/L (17-59); BLOOD UREA NITROGEN 16 mg/dL (7-21); CALCIUM 9.8 mg/dL (8.4-10.5); GFR AFRICAN-AMERICAN > 60; GFR NON-AFRICAN AMERICAN > 60
[2018-04-28] MEDS: Insulin Reg-LOW-Coverage SC SCH ×4 (08:46→22:00)
[2018-04-28] MEDS: Multivitamin Therapeutic Tab PO SCH (10:21)
--- NOTE | 2018-04-28 10:22 | CP.PCM.PN ---
<Padma Riley - Last Filed: 04/28/18 16:17> Subjective - Date & Time of Evaluation Date of Evaluation: 04/28/18 Time of Evaluation: 10:19 - Subjective Subjective: Padma Osvaldo PGY-1: Hospitalist Service Patient seen and examined at bedside. He complains of a right-sided posterior headache that did not respond to the Tylenol given to him yesterday. We upgraded his analgesic to Ibuprofen. His daughter also at bedside reported that he has been coughing more with a yellowish color to the sputum he is producing. We also discussed the case with the covering neurologist who recommended a repeat CT of the head. Occupational therapy also saw the patient and asked him to take time to swallow with neck in neutral position. Objective - Vital Signs/Intake and Output Vital Signs (last 24 hours): Temp Pulse Resp BP Pulse Ox 99.1 F 76 20 141/93 H 94 L 04/28/18 06:00 04/28/18 10:00 04/28/18 06:00 04/28/18 06:00 04/28/18 06:00 Intake and Output: 04/28/18 04/28/18 06:59 18:59 Intake Total 120 Output Total 600 Balance -480 - Medications Medications: Current Medications Acetaminophen (Tylenol 325mg Tab) 650 mg PO Q6H PRN PRN Reason: Pain, Mild (1-3) Last Admin: 04/27/18 17:35 Dose: 650 mg Aspirin (Aspirin Chewable) 81 mg PO DAILY [facility] Last Admin: 04/27/18 09:53 Dose: 81 mg Atorvastatin Calcium (Lipitor) 40 mg PO DIN [facility] Last Admin: 04/27/18 17:35 Dose: 40 mg Clopidogrel Bisulfate (Plavix) 75 mg PO DAILY [facility] Last Admin: 04/27/18 09:53 Dose: 75 mg Famotidine (Pepcid) 40 mg PO HS [facility] Last Admin: 04/27/18 21:06 Dose: 40 mg Folic Acid (Folic Acid) 1 mg PO DAILY [facility] Last Admin: 04/27/18 09:52 Dose: 1 mg Heparin Sodium (Porcine) (Heparin) 5,000 units SC Q12 [facility] PRN Reason: Protocol Last Admin: 04/27/18 21:06 Dose: 5,000 units Ibuprofen (Motrin Tab) 400 mg PO Q6H PRN PRN Reason: Pain, moderate (4-7) Insulin Human Regular (Humulin R Low) 0 units SC ACHS [facility] PRN Reason: Protocol Last Admin: 04/28/18 08:46 Dose: Not Given Multivitamins (Thera Tab) 1 tab PO DAILY [facility] Last Admin: 04/27/18 09:53 Dose: 1 tab Ondansetron HCl (Zofran Inj) 4 mg IVP Q8 PRN PRN Reason: Nausea/Vomiting Thiamine HCl (Vitamin B1 Tab) 100 mg PO BID [facility] Last Admin: 04/27/18 17:35 Dose: 100 mg - Labs Labs: 04/28/18 06:30 04/28/18 06:30 - Constitutional Appears: Other (tired) - Head Exam Head Exam: ATRAUMATIC, NORMOCEPHALIC - Eye Exam Eye Exam: EOMI, PERRL Additional comments: Right sided ptosis - ENT Exam ENT Exam: Mucous Membranes Moist - Neck Exam Neck Exam: Normal Inspection - Respiratory Exam Respiratory Exam: Clear to Ausculation Bilateral. absent: Accessory Muscle Use - Cardiovascular Exam Cardiovascular Exam: RRR, +S1, +S2 - GI/Abdominal Exam GI & Abdominal Exam: Soft, Normal Bowel Sounds - Extremities Exam Extremities Exam: Normal Inspection. absent: Calf Tenderness, Pedal Edema - Back Exam Back Exam: NORMAL INSPECTION. absent: CVA tenderness (L), CVA tenderness (R) - Neurological Exam Neurological Exam: Alert, Awake Neuro motor strength exam: Left Upper Extremity: 5, Right Upper Extremity: 5, Left Lower Extremity: 5, Right Lower Extremity: 5 Additional comments: on finger to nose patient demonstrated past-pointing - Psychiatric Exam Psychiatric exam: Normal Affect, Normal Mood - Skin Skin Exam: Dry, Intact, Normal Color, Warm Assessment and Plan - Assessment and Plan (Free Text) Assessment: 52 year old male with history of tobacco and alcohol use, admitted for right sided CVA: Right sided cerebellar ischemic stroke/Wallenberg Syndrome -Stable, afebrile -not TPA candidate due to timeline - repeat CT scan today reads as: Large right cerebellar acute infarct again noted. Smaller acute ischemic changes involving the right and left posterior temporoparietal watershed zones right larger than left not well seen on this exam compared MRI. Vague low attenuation changes are seen the left cerebellar hemisphere most likely represent of volume averaging of deep cerebral white matter however ischemic changes involving left cerebellum not excluded. Chronic white matter and basal nuclei ischemic changes also poorly seen compared to high -resolution MRI. 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 AV is mildly sclerotic. MR is trace. TR is trace. RVSP 17 mmHG. There is no pericardial effusion, no thromnbus and no evidence of an ASD. -MRI brain: mildly large rigth PICA infarct, affecting right cerebellum with small WALL CLEANER infarct, affecting right parieto-occipital junction. -CTA head/neck: neg. 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 -Hypercoagulable workup in progress -Speech eval: finely chopped, nectar thick liquids. -HHD started, as per speech recs -Physical therapy: acute rehab -Occupational therapy: acute rehab -HgA1c 6.1 -Neuro consulted, -Allow for permissive hypertension 180/90 -Seizure precautions, Aspiration precautions, Continue Neurochecks EKG MONITOR TECH note reads as: Patient seen on 04/27 day, alert, cooperative, willingly participated in therapy. Trial - thin liquids, soft solids. Patient able to feed self on this day. Patient with functional bolus manipulation, mastication , however, delayed A-P transit. With laryngeal palpation, suspected delay or hesistation in swallow noted with all trials. No overt cough, throat clear, or choke with trials. Patient is recommended for liquid upgrade to thin liquids, continue finely chopped textures. Staff to monitor for signs for aspiration. Dyslipidemia -Lipid panel: Triglycerides 160, Cholesterol 202, LDL 122, HDL 44 -Continue Lipitor 40mg PO HS Tobacco use/Alcohol use -Patient smokes 1-2 black and milds a day -Cessation advised -F/U UTOX -CIWA 0 -Banana bag discontinued -Started on Thiamine, Multivitamins, Folic acid GI/DVT Prophylaxis Pepcid 20mg PO daily Heparin 5000 units SC Q12H Disposition: Patient does not have a PMD, will have patient follow up with [facility] upon discharge. Case seen and discussed with Dr Castrejon. Padma Riley PGY1 <Arti Castrejon - Last Filed: 04/28/18 16:31> Objective - Vital Signs/Intake and Output Vital Signs (last 24 hours): Temp Pulse Resp BP Pulse Ox 98 F 88 18 133/87 94 L 04/28/18 12:00 04/28/18 14:00 04/28/18 12:00 04/28/18 12:00 04/28/18 06:00 Intake and Output: 04/28/18 04/28/18 06:59 18:59 Intake Total 120 300 Output Total 600 600 Balance -480 -300 - Medications Medications: Current Medications Acetaminophen (Tylenol 325mg Tab) 650 mg PO Q6H PRN PRN Reason: Pain, Mild (1-3) Last Admin: 04/27/18 17:35 Dose: 650 mg Aspirin (Aspirin Chewable) 81 mg PO DAILY [facility] Last Admin: 04/28/18 10:21 Dose: 81 mg Atorvastatin Calcium (Lipitor) 40 mg PO DIN [facility] Last Admin: 04/27/18 17:35 Dose: 40 mg Clopidogrel Bisulfate (Plavix) 75 mg PO DAILY [facility] Last Admin: 04/28/18 10:21 Dose: 75 mg Famotidine (Pepcid) 40 mg PO HS [facility] Last Admin: 04/27/18 21:06 Dose: 40 mg Folic Acid (Folic Acid) 1 mg PO DAILY [facility] Last Admin: 04/28/18 10:21 Dose: 1 mg Guaifenesin/Dextromethorphan (Mucinex-Dm 600-30 Mg) 1 tab PO BID [facility] Heparin Sodium (Porcine) (Heparin) 5,000 units SC Q12 [facility] PRN Reason: Protocol Last Admin: 04/28/18 10:21 Dose: 5,000 units Ibuprofen (Motrin Tab) 400 mg PO Q6H PRN PRN Reason: Pain, moderate (4-7) Insulin Human Regular (Humulin R Low) 0 units SC ACHS [facility] PRN Reason: Protocol Last Admin: 04/28/18 12:02 Dose: Not Given Multivitamins (Thera Tab) 1 tab PO DAILY [facility] Last Admin: 04/28/18 10:21 Dose: 1 tab Ondansetron HCl (Zofran Inj) 4 mg IVP Q8 PRN PRN Reason: Nausea/Vomiting Thiamine HCl (Vitamin B1 Tab) 100 mg PO BID [facility] Last Admin: 04/28/18 10:21 Dose: 100 mg - Labs Labs: 04/28/18 06:30 06/24/18 06:30 Attending/Attestation - Attestation I have personally seen and examined this patient.: Yes I have fully participated in the care of the patient.: Yes I have reviewed all pertinent clinical information, including history, physical exam and plan: Yes Notes (Text): 04/28/18 16:30 52 year old male with history of tobacco and alcohol use presents with complaint of lower extremities weakness, gait imbalance and dizziness. CT head showed acute or subacute inferior right cerebellar hemisphere infarct. CTA head/neck was negative for occlusion. MRI brain showed mildly large PICA infarct affecting the right cerebellum with a small right WALL CLEANER subdistribution infarct affecting right parietooccipital junction. Carotid dopplers and echocardiogram reviewed as above. Patient is on aspirin, plavix and lipitor. Today complains of posterior headache with neck pain. Discussed with neurology who requested repeat CT head. PT is following as well; currently recommending acute rehab. Patient was counselled on alcohol and smoking cessation. Family is at bedside and questions were answered. Arti Castrejon MD Hospitalist.
--- NOTE | 2018-04-28 11:52 | CT ---
PROCEDURE: CT HEAD WITHOUT CONTRAST. HISTORY: Headache in patient with a recent stroke COMPARISON: Comparison made with prior study 04/26/2018 head MRI 04/25/2018. TECHNIQUE: Axial computed tomography images were obtained through the head/brain without intravenous contrast. Radiation dose: Total exam DLP = 977.17 mGy-cm. This CT exam was performed using one or more of the following dose reduction techniques: Automated exposure control, adjustment of the mA and/or kV according to patient size, and/or use of iterative reconstruction technique. FINDINGS: HEMORRHAGE: No intracranial hemorrhage. BRAIN: Re- demonstrated is a large right the inferior cerebellar infarct Tiny acute infarct changes involving the right posterior parieto-occipital watershed zone and a tiny infarct in the left occipito parietal watershed zone poorly seen on this exam. Vague low attenuation changes are seen the left cerebral hemisphere most likely represent of volume averaging of deep cerebellar white matter however ischemic changes involving left cerebellum not excluded. Mild chronic periventricular white matter ischemic changes and scattered chronic bilateral basal nuclei lacunar type infarcts the are also less well seen on this exam as compared to the prior MRI. Mild moderate central volume loss unchanged. VENTRICLES: No obstructive hydrocephalus. CALVARIUM: Unremarkable. PARANASAL SINUSES: Unremarkable as visualized. No significant inflammatory changes. MASTOID AIR CELLS: Unremarkable as visualized. No inflammatory changes. OTHER FINDINGS: Hypertelorism and exophthalmos. IMPRESSION: Large right cerebellar acute infarct again noted. Smaller acute ischemic changes involving the right and left posterior temporoparietal watershed zones right larger than left not well seen on this exam compared MRI. Vague low attenuation changes are seen the left cerebellar hemisphere most likely represent of volume averaging of deep cerebral white matter however ischemic changes involving left cerebellum not excluded. Chronic white matter and basal nuclei ischemic changes also poorly seen compared to high-resolution MRI.
--- NOTE | 2018-04-28 17:24 | RAD ---
HISTORY: Rule out aspiration PNA COMPARISON: Comparison chest 04/24/2018 FINDINGS: LUNGS: Vague opacity seen in the right medial lung base could represent some crowded bronchovascular markings or atelectasis however on early aspiration pneumonia not excluded. Suspect mild left basilar atelectasis. PLEURA: No significant pleural effusion identified, no pneumothorax apparent. CARDIOVASCULAR: Mild cardiomegaly. OSSEOUS STRUCTURES: No significant abnormalities. VISUALIZED UPPER ABDOMEN: Normal OTHER FINDINGS: 9 IMPRESSION: Vague opacity seen in the right medial lung base could represent some crowded bronchovascular markings or atelectasis however on early aspiration pneumonia not excluded. Suspect mild left basilar atelectasis.
[2018-04-28] MEDS: guaiFENesin-DM 600-30 mg ER Tab PO SCH ×2 (17:34→17:36)
[2018-04-28 20:00] LABS: CARDIOLIPIN AB (IGM) <12 MPL (<=12); PHOSPHATIDYLSERINE AB IGA <20 U/mL (<20); PHOSPHATIDYLSERINE AB IGG <10 U/mL (<10); PHOSPHATIDYLSERINE AB IGM <25 U/mL (<25)
[2018-04-29 02:21] VITALS: RESP 20
[2018-04-29 06:45] VITALS: O2SAT 96
[2018-04-29 07:38] LABS: BASO # 0.02 K/mm3 (0.0-2.0); BASO % 0.3 % (0.0-3.0); EOS # 0.1 (0.0-0.7); EOS % 1.4 % (1.5-5.0); GRAN # 3.89 (1.4-6.5); GRAN % 59.3 % (50.0-68.0); HEMOGLOBIN 12.8 g/dL (14.0-18.0); LYMPH # 2.1 (1.2-3.4); LYMPH % 32.6 % (22.0-35.0); MEAN CELL VOLUME 83.6 fl (80.0-105.0); MEAN CORPUSCULAR HEMOGLOBIN 26.8 pg (25.0-35.0); MEAN CORPUSCULAR HGB CONC 32.1 g/dl (31.0-37.0); MEAN PLATELET VOLUME 9.2 fl (7.0-11.0); MONO # 0.4 (0.1-0.6); MONO % 6.4 % (1.0-6.0); RBC 4.77 10^6/uL (3.5-6.1); RED CELL DISTRIBUTION WIDTH 14.2 % (11.5-14.5); WHITE BLOOD COUNT 6.6 10^3/ul (4.5-11.0)
[2018-04-29 07:55] LABS: ALB/GLOB RATIO 1.1 (1.1-1.8); ALBUMIN 4.2 g/dL (3.0-4.8); ALT/SGPT 41 U/L (7-56); AST/SGOT 30 U/L (17-59); BLOOD UREA NITROGEN 18 mg/dL (7-21); CALCIUM 9.6 mg/dL (8.4-10.5); GFR AFRICAN-AMERICAN > 60; GFR NON-AFRICAN AMERICAN > 60
[2018-04-29] MEDS: Insulin Reg-LOW-Coverage SC SCH ×2 (08:27→12:14)
[2018-04-29] MEDS: Multivitamin Therapeutic Tab PO SCH (10:01)
[2018-04-29] MEDS: guaiFENesin-DM 600-30 mg ER Tab PO SCH (10:01)
[2018-04-29 11:47] LABS: COAG FACTOR VIII ACTIVITY 145 % (50-180)
[2018-04-29] MEDS ORDERED: Alum-Mag Hydrox-Simethicone Susp (30 mL) PO ONE (12:15)
--- NOTE | 2018-04-29 12:39 | CP.PCM.PN ---
Subjective - Date & Time of Evaluation Date of Evaluation: 04/29/18 Time of Evaluation: 12:39 - Subjective Subjective: Mr. Soriano was seen and examined at the bedside. He is alert, oriented in all spheres. He denies any headache, dizziness, blurred vision, diplopia, except of neck stiffness over the weekend. He is able to move his head from side to side up and down without any problem. furthermore, he is able to follow all commands with no weakness noted. He is non- compliant to the liquid consistency recommended for him, drinks thin liquids. There was no untoward events overnight. Objective - Vital Signs/Intake and Output Vital Signs (last 24 hours): Temp Pulse Resp BP Pulse Ox 98.4 F 92 H 20 132/79 96 04/29/18 06:00 04/29/18 10:00 04/29/18 06:00 04/29/18 06:00 04/29/18 06:00 Intake and Output: 04/29/18 04/29/18 06:59 18:59 Intake Total 240 Output Total 300 Balance -60 - Medications Medications: Current Medications Acetaminophen (Tylenol 325mg Tab) 650 mg PO Q6H PRN PRN Reason: Pain, Mild (1-3) Last Admin: 04/27/18 17:35 Dose: 650 mg Aspirin (Aspirin Chewable) 81 mg PO DAILY [facility] Last Admin: 04/29/18 10:03 Dose: 81 mg Atorvastatin Calcium (Lipitor) 40 mg PO DIN [facility] Last Admin: 04/28/18 17:36 Dose: 40 mg Clopidogrel Bisulfate (Plavix) 75 mg PO DAILY [facility] Last Admin: 04/29/18 10:01 Dose: 75 mg Famotidine (Pepcid) 40 mg PO HS [facility] Last Admin: 04/28/18 21:09 Dose: 40 mg Folic Acid (Folic Acid) 1 mg PO DAILY [facility] Last Admin: 04/29/18 10:01 Dose: 1 mg Guaifenesin/Dextromethorphan (Mucinex-Dm 600-30 Mg) 1 tab PO BID [facility] Last Admin: 04/29/18 10:01 Dose: 1 tab Heparin Sodium (Porcine) (Heparin) 5,000 units SC Q12 [facility] PRN Reason: Protocol Last Admin: 04/29/18 10:03 Dose: 5,000 units Ibuprofen (Motrin Tab) 400 mg PO Q6H PRN PRN Reason: Pain, moderate (4-7) Insulin Human Regular (Humulin R Low) 0 units SC ACHS [facility] PRN Reason: Protocol Last Admin: 04/29/18 12:14 Dose: Not Given Multivitamins (Thera Tab) 1 tab PO DAILY [facility] Last Admin: 04/29/18 10:01 Dose: 1 tab Ondansetron HCl (Zofran Inj) 4 mg IVP Q8 PRN PRN Reason: Nausea/Vomiting Thiamine HCl (Vitamin B1 Tab) 100 mg PO BID [facility] Last Admin: 04/29/18 10:01 Dose: 100 mg - Labs Labs: 04/29/18 07:33 04/29/18 07:33 - Constitutional Appears: No Acute Distress - Head Exam Head Exam: NORMAL INSPECTION - Eye Exam Pupil Exam: Miosis, PERRL Additional comments: 2 mm bilaterally - Neurological Exam Neurological Exam: Alert, Awake, Oriented x3 Neuro motor strength exam: Left Upper Extremity: 5, Right Upper Extremity: 5, Left Lower Extremity: 5, Right Lower Extremity: 5 Additional comments: alert, oriented, follows commands, no weakness noted. However gait was not tested. Sensation is intact. Assessment and Plan (1) Ischemic stroke Assessment & Plan: Case discussed with Dr. Dr. Sanchez, continue all current medical, physical, occupational, and speech therapies. Recommend hydration, blood pressure control , follow up with an outpatient neurologist if being discharge, case management consult for alcohol withdrawal program as an outpatient. Status: Acute
[2018-04-29 12:44] VITALS: TEMP 99.8
--- NOTE | 2018-04-29 14:43 | CP.PCM.DIS ---
<Erendira Floyd - Last Filed: 04/29/18 18:31> Provider - Provider Date of Admission: 04/24/18 17:01 Attending physician: Gris Thomason MD Consults: Neurology: Lb Cardiology: Bryant Time Spent in preparation of Discharge (in minutes): 40 Hospital Course - Lab Results Lab Results: Micro Results 04/24/18 20:00 Naris MRSA Culture (Admit) - Final MRSA NOT DETECTED Most Recent Lab Values WBC 6.6 10^3/ul (4.5-11.0) 04/29/18 07:33 RBC 4.77 10^6/uL (3.5-6.1) 04/29/18 07:33 Hgb 12.8 g/dL (14.0-18.0) L 04/29/18 07:33 Hct 39.9 % (42.0-52.0) L 04/29/18 07:33 MCV 83.6 fl (80.0-105.0) 04/29/18 07:33 MCH 26.8 pg (25.0-35.0) 04/29/18 07:33 MCHC 32.1 g/dl (31.0-37.0) 04/29/18 07:33 RDW 14.2 % (11.5-14.5) 04/29/18 07:33 Plt Count 287 10^3/uL (120.0-450.0) 04/29/18 07:33 MPV 9.2 fl (7.0-11.0) 04/29/18 07:33 Gran % 59.3 % (50.0-68.0) 04/29/18 07:33 Lymph % (Auto) 32.6 % (22.0-35.0) 04/29/18 07:33 [place] % (Auto) 6.4 % (1.0-6.0) H 04/29/18 07:33 Eos % (Auto) 1.4 % (1.5-5.0) L 04/29/18 07:33 Baso % (Auto) 0.3 % (0.0-3.0) 04/29/18 07:33 Gran # 3.89 (1.4-6.5) 04/29/18 07:33 Lymph # (Auto) 2.1 (1.2-3.4) 04/29/18 07:33 [place] # (Auto) 0.4 (0.1-0.6) 04/29/18 07:33 Eos # (Auto) 0.1 (0.0-0.7) 04/29/18 07:33 Baso # (Auto) 0.02 K/mm3 (0.0-2.0) 04/29/18 07:33 Protein C Antigen 121 % (70-140) 04/25/18 07:00 Protein C Activity 98 % (70-180) 04/25/18 06:25 Protein S Activity 118 % (70-150) 04/25/18 06:25 Antithrombin III Activ 112 % activity (80-120) 04/25/18 06:00 Factor VIII Activity 145 % (50-180) 04/25/18 06:25 Sodium 142 mmol/L (132-148) 04/29/18 07:33 Potassium 4.5 mmol/L (3.6-5.0) 04/29/18 07:33 Chloride 101 mmol/L (98-107) 04/29/18 07:33 Carbon Dioxide 31 mmol/L (21-33) 04/29/18 07:33 Anion Gap 14 (10-20) 04/29/18 07:33 BUN 18 mg/dL (7-21) 04/29/18 07:33 Creatinine 1.0 mg/dl (0.8-1.5) 04/29/18 07:33 Est GFR ( Amer) > 60 04/29/18 07:33 Est GFR (Non-Af Amer) > 60 04/29/18 07:33 POC Glucose (mg/dL) 96 mg/dL (65-110) 04/29/18 11:44 Random Glucose 98 mg/dL (70-110) 04/29/18 07:33 Hemoglobin A1c 6.1 % (4.2-6.5) 04/25/18 06:25 Serum Osmolality 292 mosm/kg (272-300) 04/27/18 06:00 Calcium 9.6 mg/dL (8.4-10.5) 04/29/18 07:33 Phosphorus 4.2 mg/dL (2.5-4.5) 04/29/18 07:33 Magnesium 2.5 mg/dL (1.7-2.2) H 04/29/18 07:33 Total Bilirubin 0.6 mg/dL (0.2-1.3) 04/29/18 07:33 AST 30 U/L (17-59) 04/29/18 07:33 ALT 41 U/L (7-56) 04/29/18 07:33 Alkaline Phosphatase 101 U/L (38-126) 04/29/18 07:33 Troponin I < 0.01 ng/mL 04/24/18 14:30 Total Protein 7.9 g/dL (5.8-8.3) 04/29/18 07:33 Albumin 4.2 g/dL (3.0-4.8) 04/29/18 07:33 Globulin 3.7 gm/dL 04/29/18 07:33 Albumin/Globulin Ratio 1.1 (1.1-1.8) 04/29/18 07:33 Triglycerides 110 mg/dL (35-160) 04/27/18 06:30 Cholesterol 182 mg/dL (130-200) 04/27/18 06:30 LDL Cholesterol Direct 112 mg/dL (0-129) 04/27/18 06:30 HDL Cholesterol 40 mg/dL (29-60) 04/27/18 06:30 Homocysteine 13.8 umol/L ( <11.4) H 04/25/18 06:25 TSH 3rd Generation 0.88 mIU/mL (0.46-4.68) 04/24/18 14:30 Urine Color Yellow (YELLOW) 04/25/18 00:00 Urine Appearance Clear (CLEAR) 04/25/18 00:00 Urine pH 6.0 (4.7-8.0) 04/25/18 00:00 Ur Specific [place] 1.020 (1.005-1.035) 04/25/18 00:00 Urine Protein Negative mg/dL (<30 mg/dL) 04/25/18 00:00 Urine Glucose (UA) Negative mg/dL (NEGATIVE) 04/25/18 00:00 Urine Ketones Negative mg/dL (NEGATIVE) 04/25/18 00:00 Urine Blood Negative (NEGATIVE) 04/25/18 00:00 Urine Nitrate Negative (NEGATIVE) 04/25/18 00:00 Urine Bilirubin Negative (NEGATIVE) 04/25/18 00:00 Urine Urobilinogen 1.0 E.U./dL (<1 E.U./dL) H 04/25/18 00:00 Ur Leukocyte Esterase Negative Yefri/uL (NEGATIVE) 04/25/18 00:00 Urine Opiates Screen Negative (NEGATIVE) 04/25/18 23:16 Urine Methadone Screen Negative (NEGATIVE) 04/25/18 23:16 Ur Barbiturates Screen Negative (NEGATIVE) 04/25/18 23:16 Ur Phencyclidine Scrn Negative (NEGATIVE) 04/25/18 23:16 Ur Amphetamines Screen Negative (NEGATIVE) 04/25/18 23:16 U Benzodiazepines Scrn Negative (NEGATIVE) 04/25/18 23:16 U Oth Cocaine Metabols Negative (NEGATIVE) 04/25/18 23:16 U Cannabinoids Screen Negative (NEGATIVE) 04/25/18 23:16 Double Strand DNA Ab <1 IU/mL 04/25/18 06:25 Vpef-7-[id number] Ab <9 IRISH (<=20) 04/25/18 06:25 Beta-2 GPI IgG Ab <9 SGU (<=20) 04/25/18 06:25 Beta-2 GPI IgM Ab <9 SMU (<=20) 04/25/18 06:25 Phosphatidylserine IgG <10 U/mL (<10) 04/25/18 06:25 Phosphatidylserine IgA <20 U/mL (<20) 04/25/18 06:25 Phosphatidylserine IgM <25 U/mL (<25) 04/25/18 06:25 Anti-Phospholipid Intrp see note 04/25/18 06:25 Anti-Cardiolipin IgG Ab <14 GPL (<=14) 04/25/18 06:25 Anti-Cardiolipin IgA Ab <11 APL (<=11) 04/25/18 06:25 Anti-Cardiolipin IgM Ab <12 MPL (<=12) 04/25/18 06:25 Func C1 Esterase Inhib >100 % (>=68) 04/25/18 06:00 Blood Type O POSITIVE 04/24/18 18:18 Blood Type Confirm O POSITIVE 04/25/18 06:25 Antibody Screen Negative 04/24/18 18:18 BBK History Checked No verified bt 04/24/18 18:18 - Hospital Course Hospital Course: HPI: 52 year old male with no PMH presents to the hospital for 2 day history of dizziness and abnormal gait. Patient states there was no inciting event, but had a sudden change in his gait. Patient keeps walking towards the right side and feels unbalanced. Patient also admits to feeling dizzy during this time. He describes it as a lightheaded feeling, which lead to an episode of nausea and vomiting. Patient denies any trauma. Patient also admits to occasional trouble swallowing. Patient has never experienced anything like this before. Denies chest pain, shortness of breath, diarrhea, fever, chills, changes in vision, numbness, tingling, weakness, headache Hospital Course: Patient was admitted to the ICU for acute cerebellar infarction. CT head on admission showed acute or subacute infarct in the right inferior cerebellar hemisphere in the distribution of the posterior inferior cerebellar artery. 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 Patient outside the window for tPA due to time of onset. Patient was started on aspirin, plavix and lipitor. Hypercoaguable work up was ordered. Carotid US showed bilateral proximal ICA stenosis 20-39%. Speech eval was ordered. Brain MRI showed a mildly large right PICA infarct affecting the right cerebellum with a small right ELECTROPHONIC ENGINEER sub distribution infarction affecting right parieto-occipital junction posteriorly (see full report). Echo showed intact interatrial septum. Patient was complaining of posterior headache with neck pain. Neurology requested Repeat Head CT on 04/28 that showed large right cerebellar acute infarct, smaller acute ischemic changes involving the right and left posterior temporoparietal watershe zones right larger than left (see full report). PT evaluated the patient and recommended acute rehab for disposition. Patient does not have insurance and does not qualify for rehab at this time. Patient also desiring to go home. Patient was re-evaluated by physical therapy and will be discharged home. Paperwork for medicaid and disability were filled out by the physician. Appointment was made with [facility] clinic for follow up on May 16 at 1pm. Medications were reconciled and were provided by the bedside. Patient advised to check blood pressures at home. Goal BP <140/90. Patient was counselled on alcohol and smoking cessation. All questions and concerns were addressed. Discharge Medications: Aspirin 81mg PO daily Plavix 75mg PO daily Lipitor 40mg PO HS Norvasc 5mg PO daily Discharge Exam - Head Exam Head Exam: NORMAL INSPECTION - Eye Exam Eye Exam: EOMI, Normal appearance Pupil Exam: NORMAL ACCOMODATION - ENT Exam ENT Exam: Mucous Membranes Moist - Neck Exam Neck exam: Full Rom - Respiratory Exam Respiratory Exam: Clear to PA & Lateral, NORMAL BREATHING PATTERN, UNREMARKABLE. absent: Rhonchi, Wheezes, Respiratory Distress - Cardiovascular Exam Cardiovascular Exam: REGULAR RHYTHM, +S1, +S2 - GI/Abdominal Exam GI & Abdominal Exam: Normal Bowel Sounds, Soft. absent: Guarding, Rebound, Rigid, Tenderness - Extremities Exam Extremities exam: normal inspection - Back Exam Back exam: NORMAL INSPECTION - Neurological Exam Neurological exam: Alert, CN II-XII Intact, Oriented x3 - Psychiatric Exam Psychiatric exam: Normal Affect, Normal Mood - Skin Skin Exam: Dry, Normal Color, Warm Discharge Plan - Discharge Medications Prescriptions: amLODIPine [Norvasc] 5 mg PO DAILY #30 tab Aspirin [Aspirin Chewable] 81 mg PO DAILY #30 chew Atorvastatin [Lipitor] 40 mg PO DIN #30 tab Clopidogrel [Plavix] 75 mg PO DAILY #30 tab - Follow Up Plan Condition: FAIR Disposition: HOME/ ROUTINE Instructions: Stroke, High Blood Pressure in Adults, Smoking: Not Just Harmful to Your Lungs and Heart, Quitting Smoking, Dizziness, Nonvertigo, (DC) Additional Instructions: 1. Patient is clear for discharge home 2. Please take medications prescribed, this includes Aspirin 81mg daily, Plavix 75mg daily, Lipitor 40mg daily and Norvasc 5mg daily 3. Please follow up with [facility] clinic to establish care and for BP check (your appointment is scheduled for May 16 1pm) 4. Please stop smoking and drinking alcohol 5. If having any worsening symptoms or new symptoms, please return to nearest emergency room <Gris Thomason - Last Filed: 04/30/18 11:43> Provider - Provider Date of Admission: 04/24/18 17:01 Attending physician: Gris Thomason MD Hospital Course - Lab Results Lab Results: Micro Results 04/24/18 20:00 Naris MRSA Culture (Admit) - Final MRSA NOT DETECTED Most Recent Lab Values WBC 6.6 10^3/ul (4.5-11.0) 04/29/18 07:33 RBC 4.77 10^6/uL (3.5-6.1) 04/29/18 07:33 Hgb 12.8 g/dL (14.0-18.0) L 04/29/18 07:33 Hct 39.9 % (42.0-52.0) L 04/29/18 07:33 MCV 83.6 fl (80.0-105.0) 04/29/18 07:33 MCH 26.8 pg (25.0-35.0) 04/29/18 07: MCHC 32.1 g/dl (31.0-37.0) 04/29/18 07:33 RDW 14.2 % (11.5-14.5) 04/29/18 07:33 Plt Count 287 10^3/uL (120.0-450.0) 04/29/18 07:33 MPV 9.2 fl (7.0-11.0) 04/29/18 07:33 Gran % 59.3 % (50.0-68.0) 04/29/18 07:33 Lymph % (Auto) 32.6 % (22.0-35.0) 04/29/18 07:33 [place] % (Auto) 6.4 % (1.0-6.0) H 04/29/18 07:33 Eos % (Auto) 1.4 % (1.5-5.0) L 04/29/18 07:33 Baso % (Auto) 0.3 % (0.0-3.0) 04/29/18 07:33 Gran # 3.89 (1.4-6.5) 04/29/18 07:33 Lymph # (Auto) 2.1 (1.2-3.4) 04/29/18 07:33 [place] # (Auto) 0.4 (0.1-0.6) 04/29/18 07:33 Eos # (Auto) 0.1 (0.0-0.7) 04/29/18 07:33 Baso # (Auto) 0.02 K/mm3 (0.0-2.0) 04/29/18 07:33 Lupus Anticoagulant see note 04/25/18 06:25 LA PTT Screen 35 sec (<=40) 04/25/18 06:25 dRVVT Confirm Interp TEST NOT PERFORMED 04/25/18 06:25 dRVVT Mixing Study 33 sec (<=45) 04/25/18 06:25 dRVVT Mix Interpret Not indicated 04/25/18 06:25 Hexagonal Phase Confirm TEST NOT PERFORMED 04/25/18 06:25 Protein C Antigen 121 % (70-140) 04/25/18 07:00 Protein C Activity 98 % (70-180) 04/25/18 06:25 Protein S Activity 118 % (70-150) 04/25/18 06:25 Protein S Antigen 146 % (70-140) H 04/25/18 06:25 Antithrombin III Activ 112 % activity (80-120) 04/25/18 06:25 Factor V see note 04/25/18 06:25 Factor V Activity 115 % (65-150) 04/25/18 06:25 Factor VIII Activity 145 % (50-180) 04/25/18 06:25 Sodium 142 mmol/L (132-148) 04/29/18 07:33 Potassium 4.5 mmol/L (3.6-5.0) 04/29/18 07:33 Chloride 101 mmol/L (98-107) 04/29/18 07:33 Carbon Dioxide 31 mmol/L (21-33) 04/29/18 07:33 Anion Gap 14 (10-20) 04/29/18 07:33 BUN 18 mg/dL (7-21) 04/29/18 07:33 Creatinine 1.0 mg/dl (0.8-1.5) 04/29/18 07:33 Est GFR ( Amer) > 60 04/29/18 07:33 Est GFR (Non-Af Amer) > 60 04/29/18 07:33 POC Glucose (mg/dL) 96 mg/dL (65-110) 04/29/18 11:44 Random Glucose 98 mg/dL (70-110) 04/29/18 07:33 Hemoglobin A1c 6.1 % (4.2-6.5) 04/25/18 06:25 Serum Osmolality 292 mosm/kg (272-300) 04/27/18 06:00 Calcium 9.6 mg/dL (8.4-10.5) 04/29/18 07:33 Phosphorus 4.2 mg/dL (2.5-4.5) 04/29/18 07:33 Magnesium 2.5 mg/dL (1.7-2.2) H 04/29/18 07:33 Total Bilirubin 0.6 mg/dL (0.2-1.3) 04/29/18 07:33 AST 30 U/L (17-59) 04/29/18 07:33 ALT 41 U/L (7-56) 04/29/18 07:33 Alkaline Phosphatase 101 U/L (38-126) 04/29/18 07:33 Troponin I < 0.01 ng/mL 04/24/18 14:30 Total Protein 7.9 g/dL (5.8-8.3) 04/29/18 07:33 Albumin 4.2 g/dL (3.0-4.8) 04/29/18 07:33 Globulin 3.7 gm/dL 04/29/18 07:33 Albumin/Globulin Ratio 1.1 (1.1-1.8) 04/29/18 07:33 Triglycerides 110 mg/dL (35-160) 04/27/18 06:30 Cholesterol 182 mg/dL (130-200) 04/27/18 06:30 LDL Cholesterol Direct 112 mg/dL (0-129) 04/27/18 06:30 HDL Cholesterol 40 mg/dL (29-60) 04/27/18 06:30 Homocysteine 13.8 umol/L ( <11.4) H 04/25/18 06:25 TSH 3rd Generation 0.88 mIU/mL (0.46-4.68) 04/24/18 14:30 Urine Color Yellow (YELLOW) 04/25/18 00:00 Urine Appearance Clear (CLEAR) 04/25/18 00:00 Urine pH 6.0 (4.7-8.0) 04/25/18 00:00 Ur Specific [place] 1.020 (1.005-1.035) 04/25/18 00:00 Urine Protein Negative mg/dL (<30 mg/dL) 04/25/18 00:00 Urine Glucose (UA) Negative mg/dL (NEGATIVE) 04/25/18 00:00 Urine Ketones Negative mg/dL (NEGATIVE) 04/25/18 00:00 Urine Blood Negative (NEGATIVE) 04/25/18 00:00 Urine Nitrate Negative (NEGATIVE) 04/25/18 00:00 Urine Bilirubin Negative (NEGATIVE) 04/25/18 00:00 Urine Urobilinogen 1.0 E.U./dL (<1 E.U./dL) H 04/25/18 00:00 Ur Leukocyte Esterase Negative Yefri/uL (NEGATIVE) 04/25/18 00:00 Urine Opiates Screen Negative (NEGATIVE) 04/25/18 23:16 Urine Methadone Screen Negative (NEGATIVE) 04/25/18 23:16 Ur Barbiturates Screen Negative (NEGATIVE) 04/25/18 23:16 Ur Phencyclidine Scrn Negative (NEGATIVE) 04/25/18 23:16 Ur Amphetamines Screen Negative (NEGATIVE) 04/25/18 23:16 U Benzodiazepines Scrn Negative (NEGATIVE) 04/25/18 23:16 U Oth Cocaine Metabols Negative (NEGATIVE) 04/25/18 23:16 U Cannabinoids Screen Negative (NEGATIVE) 04/25/18 23:16 DOMENIC Screen Negative (Negative) 04/25/18 06:25 DOMENIC Titer TEST NOT PERFORMED 04/25/18 06:25 DOMENIC Titer 2 TEST NOT PERFORMED 04/25/18 06:25 DOMENIC Pattern TEST NOT PERFORMED 04/25/18 06:25 DOMENIC Pattern 2 TEST NOT PERFORMED 04/25/18 06:25 Double Strand DNA Ab <1 IU/mL 04/25/18 06:25 Iszc-3-Yhljcweaijbk Ab <9 IRISH (<=20) 04/25/18 06:25 Beta-2 GPI IgG Ab <9 SGU (<=20) 04/25/18 06:25 Beta-2 GPI IgM Ab <9 SMU (<=20) 04/25/18 06:25 Phosphatidylserine IgG <10 U/mL (<10) 04/25/18 06:25 Phosphatidylserine IgA <20 U/mL (<20) 04/25/18 06:25 Phosphatidylserine IgM <25 U/mL (<25) 04/25/18 06:25 Anti-Phospholipid Intrp see note 04/25/18 06:25 Anti-Cardiolipin IgG Ab <14 GPL (<=14) 04/25/18 06:25 Anti-Cardiolipin IgA Ab <11 APL (<=11) 04/25/18 06:25 Anti-Cardiolipin IgM Ab <12 MPL (<=12) 04/25/18 06:25 Func C1 Esterase Inhib >100 % (>=68) 04/25/18 06:00 Blood Type O POSITIVE 04/24/18 18:18 Blood Type Confirm O POSITIVE 04/25/18 06:25 Antibody Screen Negative 04/24/18 18:18 BBK History Checked No verified bt 04/24/18 18:18 Attending/Attestation - Attestation I have personally seen and examined this patient.: Yes I have fully participated in the care of the patient.: Yes I have reviewed all pertinent clinical information, including history, physical exam and plan: Yes Notes (Text): 04/30/18 11:40 attending note; Patient seen and with resident. Patient is a 52 year old male with history of tobacco and alcohol use presents with complaint of lower extremities weakness, gait imbalance and dizziness. CT head showed acute or subacute inferior right cerebellar hemisphere infarct. CTA head/neck was negative for occlusion. MRI brain showed mildly large PICA infarct affecting the right cerebellum with a small right ELECTROPHONIC ENGINEER subdistribution infarct affecting right parietooccipital junction. Carotid dopplers and echocardiogram reviewed as above. Patient is on aspirin, plavix, Norvasc and lipitor. Today patient denied any headache with neck pain. worked with physical therapy. Cleared for discharge at home with supervision. Patient was counselled on alcohol and smoking cessation. Family is at bedside and questions were answered. Medication delivered by the bedside. Patient will follow-up with [facility] clinic on May 16 at 1 PM. Diagnosis; Acute ischemic stroke Gait instability
[2018-04-29 15:06] VITALS: BP 141/84; PULSE 78
--- NOTE | 2018-04-29 15:12 | PN ---
DATE: 04/29/2018 FOLLOWUP SUBJECTIVE: The patient denies any headache or visual disturbances. The patient is still reporting imbalance. PHYSICAL EXAMINATION: VITAL SIGNS: Blood pressure 138/79, heart rate 79, temperature 98.4, respirations 20. HEENT: Normocephalic. CHEST: Clear. HEART: S1 and S2 regular. ABDOMEN: Soft. LABORATORY DATA: Hemoglobin and hematocrit today 12.8 and 39.9. White count and platelet count are within normal limit. Today's SMA-7 is entirely within normal limit. Magnesium is slightly above normal at 2.5. Yesterday's chest x-ray: Vague opacity seen in the right medial lung base, could represent some crowded bronchovascular markings or atelectasis. However, early aspiration pneumonia not excluded. Repeat head CT scan yesterday revealed large right cerebellar acute infarct noted. Small acute ischemic changes involving the right and left posterior temporoparietal watershed zone, right greater than left. Chronic white matter and basal nuclei ischemic changes. Official echocardiographic study: Normal left ventricular size, ejection fraction estimated at 60-65%. Mildly sclerotic arterial valve. The interatrial septum is intact with no evidence of atrial septal defect by bubble study. ASSESSMENT: 1. Large right cerebellar infarct. 2. Hypertension. RECOMMENDATIONS: continue aspirin 81 mg once a day, folic acid 1 mg daily, Lipitor at 40 mg once a day, Plavix 75 mg once a day, thiamine 100 mg once a day. Abdifatah Hurtado MD
[2018-04-30 14:35] LABS: CARDIOLIPIN AB (IGA) <11 APL (<=11)
== END 2018-04-29 16:45 | disposition home or self-care (01) | DRG 14 ==
LOC: ED 13:10 → ERH 17:01 → CCU 18:31 → 2RSO 04-26 22:37
PROVIDERS: ADMIT Internal Medicine; ATTEND Internal Medicine
DX: I63.531 Cerebral infarction due to unspecified occlusion or stenosis of right posterior cerebral artery (principal); G46.3 Brain stem stroke syndrome; I10 Essential (primary) hypertension; F17.210 Nicotine dependence, cigarettes, uncomplicated; E78.5 Hyperlipidemia, unspecified; E66.9 Obesity, unspecified; R26.81 Unsteadiness on feet; R29.704 NIHSS score 4; Z68.39 Body mass index [BMI] 39.0-39.9, adult